=== PATIENT | male | born 1960 | race Caucasian/White ===

== ENCOUNTER 2019-09-03 15:19 | Outpatient (REF) | payer SELFPAY ==
[2019-09-03 17:49] LABS: Chol HDL Ratio 6.13 mg/dL (1.0-5.00); Cholesterol 245 mg/dL (0-200); Glucose 379 mg/dL (65-115); HDL Cholesterol 40 mg/dL (60-100); LDL Cholesterol Calculated 163 mg/dL (50-129); LDL HDL Ratio 4.08 RATIO (0.00-3.22); Triglycerides 209 mg/dL (0-150)
[2019-09-03 18:16] LABS: Estmated Average Glucose 306; Hemoglobin A1C 12.3 % (4.0-6.0)
== END 2019-09-03 15:20 | disposition home or self-care (01) ==
LOC: LAB 15:19
PROVIDERS: Family Provider Nurse Practitioner Family; PCP Nurse Practitioner Family; Visit Provider Dermatology
DX: Z13.9 Encounter for screening, unspecified (principal)
CPT/HCPCS: 80061; 82947; 83036

== ENCOUNTER → 2020-12-26 15:58 | Outpatient (BNVA) | payer MEDICAID, SELFPAY | PROVIDERS: Family Provider Nurse Practitioner Family; PCP Registered Nurse; Visit Provider Registered Nurse | DX: E11.40 Type 2 diabetes mellitus with diabetic neuropathy, unspecified; E78.5 Hyperlipidemia, unspecified; I10 Essential (primary) hypertension; F17.210 Nicotine dependence, cigarettes, uncomplicated; E11.65 Type 2 diabetes mellitus with hyperglycemia | CPT/HCPCS: 80053; 80061; 83036; 85025 ==

== ENCOUNTER 2021-03-03 06:23 | Outpatient (CLI) | payer MEDICAID, SELFPAY ==
[2021-03-03 06:37] VITALS: BMI 21.4
--- NOTE | 2021-03-03 06:37 | ECG_ITS ---
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 Interpretive Statements NAME OF STUDY: TREADMILL STRESS TEST INDICATION: King, PROCEDURE: At the baseline, the patient's blood pressure was 103/80 with a heart rate of 101. The baseline electrocardiogram showed normal sinus rhythm with normal ST-Ts.. The patient exercised for 6 minutes and 31 seconds on a standard Luis A protocol. Patient attained a maximum heart rate of 137 beats per minute(86% of the maximum predicted heart rate) with a blood pressure at the peak exercise of 147/72 mm Hg. The EKG at the peak exercise revealed no significant changes. Patient did not have any chest pain or any significant cardiac arrhythmias with the exercise During the recovery phase, there were no new changes. Blood pressure at the end of the recovery phase was 124/82 mm Hg with a heart rate of 94 per minute. CONCLUSION: 1. No significant EKG changes of the treadmill exercise. 2. No exercise-induced chest pain or cardiac arrhythmia 3. Fair exercise tolerance, attained a maximum of 10.2 METs Electronically Signed On 03-06-2021 17:51:59 CDT by Mark Mcclure M.D. [id number]
[2021-03-03 07:05] VITALS: BP 124/82; PULSE 94
== END 2021-03-03 06:24 | disposition home or self-care (01) ==
LOC: CDL 06:30
PROVIDERS: PCP Registered Nurse; Visit Provider Registered Nurse
DX: R06.09 Other forms of dyspnea (principal)
CPT/HCPCS: 93017

== ENCOUNTER → 2021-03-23 09:33 | Outpatient (BNVA) | payer MEDICAID, SELFPAY | PROVIDERS: PCP Registered Nurse; Visit Provider Registered Nurse | DX: E11.65 Type 2 diabetes mellitus with hyperglycemia (principal); E11.40 Type 2 diabetes mellitus with diabetic neuropathy, unspecified | CPT/HCPCS: 80053; 83036 ==

== ENCOUNTER → 2021-06-22 09:53 | Outpatient (BNVA) | payer MEDICAID, SELFPAY | PROVIDERS: PCP Registered Nurse; Visit Provider Registered Nurse | DX: E11.40 Type 2 diabetes mellitus with diabetic neuropathy, unspecified (principal); E11.65 Type 2 diabetes mellitus with hyperglycemia | CPT/HCPCS: 80053; 80061; 83036; 85025 ==

== ENCOUNTER → 2021-11-07 11:32 | Outpatient (BNVA) | payer MEDICAID, SELFPAY | PROVIDERS: PCP Registered Nurse; Visit Provider Registered Nurse | DX: E11.65 Type 2 diabetes mellitus with hyperglycemia (principal); I10 Essential (primary) hypertension; E78.5 Hyperlipidemia, unspecified; R10.9 Unspecified abdominal pain; R19.00 Intra-abdominal and pelvic swelling, mass and lump, unspecified site; K31.89 Other diseases of stomach and duodenum; Z12.11 Encounter for screening for malignant neoplasm of colon; N40.1 Benign prostatic hyperplasia with lower urinary tract symptoms; R39.14 Feeling of incomplete bladder emptying; E27.8 Other specified disorders of adrenal gland; G47.00 Insomnia, unspecified; R46.89 Other symptoms and signs involving appearance and behavior; E11.40 Type 2 diabetes mellitus with diabetic neuropathy, unspecified; Z87.891 Personal history of nicotine dependence | CPT/HCPCS: 80053; 80061; 81000; 83036; 85025; G0103 ==

== ENCOUNTER → 2021-11-13 10:08 | Outpatient (BNVA) | payer MEDICAID, SELFPAY | PROVIDERS: PCP Registered Nurse; Referring Provider Registered Nurse; Visit Provider Surgery | DX: R93.3 Abnormal findings on diagnostic imaging of other parts of digestive tract (principal); Z12.11 Encounter for screening for malignant neoplasm of colon | CPT/HCPCS: 99203 ==

== ENCOUNTER 2022-01-17 05:21 | Day surgery (SDC) | payer MEDICAID, SELFPAY ==
[2022-01-12 11:32] VITALS: BMI 18.6
[2022-01-17 06:08] VITALS: BP 119/84; PULSE 83; RESP 18; TEMP 36.1; O2SAT 99
[2022-01-17] MEDS: sodium chloride 0.9% 1,000 ML 30 ML IV (06:20)
--- NOTE | 2022-01-17 06:36 | W.PM.OPSFHP ---
Same Day Surgery H&P Indication for Procedure/HPI DATE OF PROCEDURE: January 17, 2022 CHIEF COMPLAINT/INDICATIONFOR SURGICAL PROCEDURE: Esophagus problems PREOP DIAGNOSIS: Abnormal CT findings of the esophagus and screening colonoscopy PLANNED PROCEDURE: Operation Date: 01/17/22 07:00 Proposed Procedures p EGD and colonoscopy 40601,57804,R93.3,Z12.11(Not Applicable) - Akira Cotto MD s Colonoscopy(Not Applicable) - Akira oCtto MD 11/13/2021 This is a pleasant 61 years old gentleman referred to my practice with history of abnormal findings on the CT scan of the esophagus, the scan was done elsewhere and the report shows gastroesophageal thickness.? Patient reports history of nausea and vomiting in the morning particularly and he does have history of acid reflux.? Denies bleeding per rectum or history of colon cancer and he never had a colonoscopy before. 01/11/2022 Patient comes today for diagnostic EGD and screening colonoscopy CT scan of the abdomen pelvis was done at outside facility shows abnormal thickening of the medial gastric fundal wall/gastroesophageal junction. Patient did not have adequate colon prep.? History so we will reschedule him for coming week.? To have an adequate colon prep and we will plan to perform both EGD and colonoscopy at the same time.? Based on medical necessity. 01/17/2022 Patient comes today for EGD and colonoscopy as he did not have a good prep last week ROS All systems have been reviewed negative except as for the above or per problem list. Medications/Allergies* Home Medications Medication Instructions Recorded Confirmed Type gabapentin 100 mg capsule 100 mg PO TID 01/09/22 01/12/22 History metformin 500 mg tablet 500 mg PO BID 01/09/22 01/12/22 History trazodone 50 mg tablet 50 mg PO DAILY 01/09/22 01/12/22 History Allergies/Adverse Reactions Allergy/AdvReac Type Severity Reaction Status Date / Time No Known Allergies Allergy Verified 01/17/22 06:37 Current Medications: Generic Name Dose Route Start Last Admin Trade Name Freq PRN Reason Stop Dose Admin Sodium Chloride 1,000 mls @ 30 mls/hr 01/17/22 06:00 01/17/22 06:20 Sodium Chloride 0.9% IV 30 mls/hr .Q24H LINCOLN Administration Pertinent History/Comorbid Conditions* Medical History (Updated 11/15/21 @ 16:21 by Akira Cotto MD) Diabetes mellitus Family History (Updated 12/26/20 @ 14:17 by Luna Zuniga LPN) Diabetes Heart disease Cancer Social History Smoking and tobacco status: former smoker Quit status (tobacco): has quit using tobacco Former quit date comment: 12/09/2020 Alcohol intake: never Adopted: No Caregiver/support person: No Lives independently: Yes service: No Current occupational status: unemployed History of recent travel: No Sexually active: Yes Current gender identity: Male Pertinent Exam Findings alert, oriented x 3, regular rate & rhythm and procedure specific exam findings (Abdominal examination nontender nondistended soft) Recommendations Surgery/Procedure today (EGD and colonoscopy with possible biopsy) Coding Level of Care Code Acute Career Development Engineer for Srinivas Velasquez
[2022-01-17 07:30] VITALS: BP 94/47; PULSE 76; RESP 18; TEMP 36.1; O2SAT 97
[2022-01-17 07:42] VITALS: BP 104/64; PULSE 79; RESP 18; O2SAT 99
--- NOTE | 2022-01-17 09:12 | P.ANESASSM_ITS ---
Pre-Anesthetic Assessment Height/Weight: Height 1.75 m Weight 57.153 kg Temp Pulse Resp BP Pulse Ox 97.0 F L 79 18 104/64 99 01/17/22 07:30 01/17/22 07:42 01/17/22 07:42 01/17/22 07:42 01/17/22 07:42 Preop Diagnosis: Abnormal CT findings of the esophagus and screening colonoscopy Operation Date: 01/17/22 07:00 Proposed Procedures p EGD and colonoscopy [id number],R93.3,Z12.11(Not Applicable) - Akira Cotto MD s Colonoscopy(Not Applicable) - Akira Cotto MD Familial anesthetic complications: None Was Beta Perry taken within 24 hours: N/A Was Clonidine taken within 24 hours: N/A Last intake: Intake Last Liquid Date 01/16/22 Last Liquid Time 20:00 Last Solid Date 01/15/22 Last Solid Time 18:00 Social No alcohol and No tobacco (h/o smoking) Exam alert, oriented x 3 and regular rate & rhythm Airway Submandibular: within normal limits Cervical ROM: within normal limits Mallampati: Class II Dentition: false Pulmonary Chronic Obstructive Pulmonary Disease and Exertional Dyspnea GI Gastroesophageal Reflux Disease Neuropsych Neuropathy Anesthetic Plan ASA status: 3 Anesthesia: MAC Medications/Allergies Home Medications Medication Instructions Recorded Confirmed Last Taken Type sitagliptin 25 mg tablet (Januvia) 25 mg PO DAILY 30 Days #30 tab 11/07/21 01/12/22 01/16/22 Rx gabapentin 100 mg capsule 100 mg PO TID 01/09/22 01/12/22 01/16/22 History metformin 500 mg tablet 500 mg PO BID 01/09/22 01/12/22 01/16/22 History trazodone 50 mg tablet 50 mg PO DAILY 01/09/22 01/12/22 01/16/22 History pantoprazole 40 mg tablet,delayed 40 mg PO DAILY 30 Days #30 tab 01/17/22 Unknown Rx release (Protonix) Allergies Allergy/AdvReac Type Severity Reaction Status Date / Time No Known Allergies Allergy Verified 01/17/22 06:37 [facility] Anesthesia Medical History Diabetes mellitus Family History Other Cancer Diabetes Heart disease Social History Smoking and tobacco status: former smoker Quit status (tobacco): has quit using tobacco Former quit date comment: 12/09/2020 Alcohol intake: never Adopted: No Caregiver/support person: No Lives independently: Yes service: No Current occupational status: unemployed History of recent travel: No Sexually active: Yes Current gender identity: Male Data Anesthesia Cardiac Studies: No Data to Display
--- NOTE | 2022-01-17 09:17 | ANE.PACU2 ---
Inpatient post-anesthesia follow up: Airway intact: Yes Vital signs: Temperature 97.0 F Pulse Rate 79 Respiratory Rate 18 Blood Pressure 104/64 Pulse Oximetry 99 Oxygen Delivery Me thod Room Air Oxygen Flow Rate Fraction of Inspir ed Oxygen Hydration adequate: Yes Nausea and vomiting: No Pain level: 1 Mental status: Baseline
== END 2022-01-17 08:05 | disposition home or self-care (01) ==
PROVIDERS: PCP Registered Nurse; Visit Provider Surgery
PROC: 0DJ08ZZ Inspection of Upper Intestinal Tract, Via Natural or Artificial Opening Endoscopic (ICD-10-PCS; CPT 43235; principal; 2022-01-17 07:00)
PROC: 0DJD8ZZ Inspection of Lower Intestinal Tract, Via Natural or Artificial Opening Endoscopic (ICD-10-PCS; CPT 45378; 2022-01-17 07:00)
DX: Z12.11 Encounter for screening for malignant neoplasm of colon (principal); R93.3 Abnormal findings on diagnostic imaging of other parts of digestive tract; K21.00 Gastro-esophageal reflux disease with esophagitis, without bleeding; K44.9 Diaphragmatic hernia without obstruction or gangrene; K29.50 Unspecified chronic gastritis without bleeding; B96.81 Helicobacter pylori [H. pylori] as the cause of diseases classified elsewhere; J44.9 Chronic obstructive pulmonary disease, unspecified; E11.40 Type 2 diabetes mellitus with diabetic neuropathy, unspecified; Z79.84 Long term (current) use of oral hypoglycemic drugs; Z87.891 Personal history of nicotine dependence
CPT/HCPCS: 43239; 45378; 88305; 88342; J2370; J2704; J7030

== ENCOUNTER → 2022-02-05 10:00 | Outpatient (BNVA) | payer MEDICAID, SELFPAY | PROVIDERS: PCP Registered Nurse; Visit Provider Registered Nurse | DX: E11.9 Type 2 diabetes mellitus without complications (principal) | CPT/HCPCS: 80053; 81000; 82043; 83036; 85025 ==

== ENCOUNTER → 2022-02-14 10:21 | Outpatient (BNVA) | payer MEDICAID, SELFPAY | PROVIDERS: PCP Registered Nurse; Visit Provider Surgery | DX: K20.90 Esophagitis, unspecified without bleeding (principal); Z12.11 Encounter for screening for malignant neoplasm of colon | CPT/HCPCS: 99213 ==

== ENCOUNTER → 2022-05-14 10:15 | Outpatient (BNVA) | payer MEDICAID, SELFPAY | PROVIDERS: PCP Registered Nurse; Visit Provider Registered Nurse | DX: E11.65 Type 2 diabetes mellitus with hyperglycemia (principal); E11.9 Type 2 diabetes mellitus without complications; E11.40 Type 2 diabetes mellitus with diabetic neuropathy, unspecified; K29.70 Gastritis, unspecified, without bleeding; G47.00 Insomnia, unspecified | CPT/HCPCS: 80053; 83036 ==

== ENCOUNTER → 2022-08-14 10:05 | Outpatient (BNVA) | payer MEDICAID, SELFPAY | PROVIDERS: PCP Registered Nurse; Visit Provider Registered Nurse | DX: E11.65 Type 2 diabetes mellitus with hyperglycemia (principal) | CPT/HCPCS: 80053; 83036 ==

== ENCOUNTER → 2022-11-20 10:19 | Outpatient (BNVA) | payer MEDICAID, SELFPAY | PROVIDERS: PCP Registered Nurse; Visit Provider Registered Nurse | DX: E11.65 Type 2 diabetes mellitus with hyperglycemia (principal); E11.40 Type 2 diabetes mellitus with diabetic neuropathy, unspecified; F17.210 Nicotine dependence, cigarettes, uncomplicated; R46.89 Other symptoms and signs involving appearance and behavior; K29.70 Gastritis, unspecified, without bleeding | CPT/HCPCS: 80053; 80061; 83036 ==

== ENCOUNTER → 2023-02-14 10:14 | Outpatient (BNVA) | payer MEDICAID, SELFPAY | PROVIDERS: PCP Registered Nurse; Visit Provider Registered Nurse | DX: E11.9 Type 2 diabetes mellitus without complications (principal) | CPT/HCPCS: 80053; 82043; 83036 ==

== ENCOUNTER → 2023-05-14 09:29 | Outpatient (BNVA) | payer MEDICAID, SELFPAY | PROVIDERS: PCP Registered Nurse; Visit Provider Registered Nurse | DX: E11.9 Type 2 diabetes mellitus without complications (principal) | CPT/HCPCS: 83036; 88304 ==

== ENCOUNTER → 2023-08-27 08:48 | Outpatient (BNVA) | payer MEDICAID, SELFPAY | PROVIDERS: PCP Registered Nurse; Visit Provider Registered Nurse | DX: E11.65 Type 2 diabetes mellitus with hyperglycemia (principal) | CPT/HCPCS: 80053; 80061; 83036; 85025 ==

== ENCOUNTER 2023-09-26 09:57 | Outpatient (CLI) | payer MEDICAID, SELFPAY ==
--- NOTE | 2023-09-26 10:15 | CT_ITS ---
WS: [id number] LDCT LUNG CANCER SCREENING TECHNIQUE: Noncontrast CT of the chest with coronal and sagittal reformatted images. CLINICAL INFORMATION: Z12.2 - Encounter for screening for malignant neoplasm of... COMPARISON: None. DLP: 54.59 mGy.cm DIvol: Mean CTDIvol: 0.90 (mGy) All CT scans at [facility] use at least one of these dose optimization techniques: automat ed exposure control; mA and/or kV adjustment per patient size (includes targeted exams where dose is matched to clinical indication); or iterative reconstruction. FINDINGS: Calcified granuloma LEFT upper lobe anteriorly. No suspicious pulmonary parenchymal abnorma lities. Normal caliber thoracic aorta. No mediastinal or hilar lymphadenopathy. Coronary calcification. No ax illary lymphadenopathy. LEFT adrenal gland is normal. RIGHT adrenal adenoma measuring 1.4 cm. Mild thoracic curve. Hypertroph ic changes thoracic spine. IMPRESSION: CT/CT lung screening [id number] LUNG-RADS: 2-Benign Appearance or Behavior FOLLOW UP: 12 Month: Continue annual screening with LDCT
== END 2023-09-26 09:58 | disposition home or self-care (01) ==
LOC: RAD 09:57
PROVIDERS: PCP Registered Nurse; Visit Provider Registered Nurse
DX: Z12.2 Encounter for screening for malignant neoplasm of respiratory organs (principal); Z87.891 Personal history of nicotine dependence; J84.10 Pulmonary fibrosis, unspecified
CPT/HCPCS: 71271

== ENCOUNTER → 2023-10-08 13:36 | Outpatient (BNVA) | payer MEDICAID, SELFPAY | PROVIDERS: PCP Registered Nurse; Visit Provider Registered Nurse | DX: E11.65 Type 2 diabetes mellitus with hyperglycemia (principal) | CPT/HCPCS: 82962 ==

== ENCOUNTER 2023-11-06 14:08 | Inpatient (IN) | payer MEDICAID, SELFPAY ==
[2023-11-06] VITALS (45 sets, daily range): BP systolic 63–117; BP diastolic 45–71; PULSE 0–148; RESP 12–29; TEMP 36.2–36.4; O2SAT 91–100
--- NOTE | 2023-11-06 14:12 | XR_ITS ---
WS: [id number] XR chest 1V portable [id number] REASON FOR EXAM: ams FINDINGS: No examination for comparison. Mild tortuosity of the thoracic aorta. Normal heart size. Calcified granulomas disease in both hemithoraces. No acute pulmonary parenchymal or pleural abnormality. Moderate degenerative spondylosis in the mid and lower thoracic spine with mild scoliosis. Multiple old healed rib fractures on the left. XR/XR chest 1V portable [id number] IMPRESSION: No acute chest abnormality.
--- NOTE | 2023-11-06 14:13 | ECG_ITS ---
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 Measurements Intervals [place] Rate: 89 P: 65 GA: 149 QRS: -29 QRSD: 83 T: 61 QT: 397 QTc: 485 Interpretive Statements SINUS RHYTHM POSSIBLE LEFT ATRIAL ENLARGEMENT [-0.1mV P-WAVE IN V1/V2] SEPTAL MYOCARDIAL INFARCTION , PROBABLY OLD [40+ ms Q WAVE IN V1/V2] No previous ECG available for comparison Electronically Signed On 11-06-2023 16:48:05 CDT by Thanh Bell M.D. [email or web address] lady of [id number]
[2023-11-06 14:31] LABS: Arterial Blood Gas Hematocrit 38.1 % (42-52); Blood Gas Allen Test Pos; Blood Gas Operator Identificat CAK; Blood Gas Sample Site Radial, left; Blood Gas Sample Type Arterial; HCO3 ABG 2.7 mmol/L (22-26); HGB O2 Sat 97.9 % (95-100); Ionized Calcium Level - ABG 1.3 mmol/L (1.1-1.4); Methemoglobin 0.6 % (0.4-1.5); Oxygen Device ROOM AIR; Oxygen Saturation ABG 99.4; PO2 FiO2 Ratio Arterial Blood 0; Potassium Level - ABG 4.1 mmol/L (3.5-5.0); Total Hemoglobin 12.4 g/dL (14-18)
[2023-11-06 14:32] LABS: ABG PCO2 11.6 mmHg (35-45); ABG PH Result 6.98 (7.35-7.45)
--- NOTE | 2023-11-06 14:34 | PC.PHAR ---
pt ams and unable to verify medications-called pts only contact [facility] [phone] no answer-medications entered are from what ext med history shows has been filled recently
[2023-11-06 14:40] LABS: Basophils % 0.3 %; Hematocrit 41.4 % (37-53); Lymphocytes # 0.7 10^3/uL (0.8-4.8); Lymphocytes % 5.9 %; Mean Corpuscular HGB Conc 31.2 g/dL (30-55); Mean Platelet Volume 10.7 fL (7.4-10.4); Monocytes # 1.1 10^3/uL (0.2-0.9); Neutrophils # 9.83 10^3/uL (1.8-7.7); Neutrophils % 84.4 %; Nucleated Red Blood Cells % 0 %; Platelet Count 168 10^3/cmm (157-399); Red Cell Distribution Width 13.6 % (12.1-15.1); White Blood Count 11.66 10^3/uL (3.29-11.43)
--- NOTE | 2023-11-06 14:40 | ED_ITS ---
Documented by User: Onofre Corbin DO 11/06/23 15:35 HPI - Altered Mental Status 2 General: Chief Complaint: Altered Mental Status Stated Complaint: AMS Time Seen by Provider: 11/06/23 14:09 History of Present Illness: Patient brought in by EMS for altered mental status. EMS states neighbor went to check on patient due to noticing his front door was open all night long. Neighbor called EMS due to patient's altered mental status. Patient is diabetic. Patient is alert to name and place however does not know the time or date or nor his address. Patient is in diabetic on glipizide and Trulicity and Jardiance, Review of Systems 2 General: Reports: ROS unobtainable due to mental status PFSH ED 2 PFSH: Medical History Gastritis Hiatal hernia Diabetes mellitus Family History Other Cancer Diabetes Heart disease Social History Smoking and tobacco/nicotine status: current every day tobacco/nicotine user Alcohol intake: current Alcohol intake frequency: 0-2 Drinks per Day Alcohol type: beer Substance/Drug Use: never Adopted: No Caregiver/support person: No Lives independently: Yes service: No Current occupational status: unemployed Sexually active: Yes Do you think of yourself as: Straight/Heterosexual Current gender identity: Male Physical Exam 2 Narrative: Unkempt with urine smelland feces on body Const: COMMON NORMALS: no acute distress, average body habitus, alert and well nourished HENMT: COMMON NORMALS: normocephalic, atraumatic, hearing grossly normal bilaterally, external ears normal, Normal external nose present, moist oral mucous membranes and oropharynx normal HEAD & SCALP: normocephalic and atraumatic NOSE: Normal external nose present EXTERNAL EAR: Yes external ears normal Eye: COMMON NORMALS: Equal, round and reactive pupils present, EOMs intact bilaterally, conjunctivae normal and no scleral icterus CONJUNCTIVA: Yes conjunctivae normal PUPIL: Yes Equal, round and reactive pupils present Neck/C-Spine: COMMON NORMALS: full ROM, no lymphadenopathy, supple, no meningeal signs, no JVD and Thyroid normal THYROID: Thyroid normal Chest: COMMONS NORMALS: normal inspection of the chest and normal palpation of entire chest wall Resp: COMMON NORMALS: normal respiratory effort, No retractions, No use of accessory muscles and clear to auscultation bilaterally AUSCULTATION: clear to auscultation bilaterally Cardio: COMMON NORMALS: no JVD, regular rate, regular rhythm, S1 normal heart sound present, S2 normal heart sound present, No gallops present (Cardio), No clicks present (Cardio), No murmurs present (Cardio) and No rub (Cardio) R ATE: regular rate RHYTHM: regular rhythm HEART SOUNDS: S1 normal heart sound present and S2 normal heart sound present GI: COMMON NORMALS: Normal to inspection, nondistended, normoactive bowel sounds present, Soft to palpation, non-tender, No hepatosplenomegaly present and no masses PALPATION: Yes Soft to palpation and Yes No hepatosplenomegaly present Neuro: SENSORIUM/ORIENTATION: Yes alert MENINGEAL SIGNS: Yes no meningeal signs Course 2 Vital Signs: Vital signs: Vital Signs Temperature 97.6 F 11/06/23 14:09 Pulse Rate 130 H 11/06/23 17:14 Respiratory Rate 18 11/06/23 17:14 Blood Pressure 86/58 11/06/23 17:14 Pulse Oximetry 96 11/06/23 15:30 Oxygen Delivery Me thod Room Air 11/06/23 17:14 MDM - Altered Mental Status Medical Decision Making Patient presents with elevated blood glucose of 490, an ABG was obtained which shows severe acidosis, lab work showed elevated BUN/creatinine of 68 and 2.1 blood sugar of 490, anion gap of 40, positive serum ketones, negative lactic acid, procalcitonin, sodium 141, potassium of 4.4, chest x-ray was negative, EKG was unremarkable, UA and UDS are pending. Dr. Jerez was consulted who agreed to place patient in ICU. Patient was started on a bicarb drip, insulin drip, given 10 units of IV insulin, bolused 2 L normal saline fluid, Differential Diagnosis Likely altered mental status; Unlikely alcoholic intoxication, delirium, dementia, hypoglycemia, hyponatremia, subarachnoid hemorrhage or sepsis Medical Records I reviewed the patient's medical records. Lab Data I reviewed the patient's lab results. 11/06/23 14:33 11/06/23 16:12 Radiology Impressions Chest X-Ray 11/06/23 14:12 IMPRESSION: No acute chest abnormality. Laboratory Results WBC 11.66 10^3/uL (3.29-11.43) H 11/06/23 14:33 RBC 4.60 10^6/uL (3.85-5.65) 11/06/23 14:33 Hgb 12.90 g/dL (11.27-16.99) 11/06/23 14:33 Hct 41.4 % (37-53) 11/06/23 14:33 MCV 90.0 fl (82-101) 11/06/23 14:33 MCH 28.0 pg (27-33) 11/06/23 14:33 MCHC 31.2 g/dL (30-55) 11/06/23 14:33 RDW 13.6 % (12.1-15.1) 11/06/23 14:33 Plt Count 168 10^3/cmm (157-399) 11/06/23 14:33 MPV 10.7 fL (7.4-10.4) H 11/06/23 14:33 Neut % (Auto) 84.4 % 11/06/23 14:33 Lymph % (Auto) 5.9 % 11/06/23 14:33 Valencia % (Auto) 9.0 % 11/06/23 14:33 Eos % (Auto) 0.0 % 11/06/23 14:33 Baso % (Auto) 0.3 % 11/06/23 14:33 Neut # (Auto) 9.83 10^3/uL (1.8-7.7) H 11/06/23 14:33 Lymph # (Auto) 0.7 10^3/uL (0.8-4.8) L 11/06/23 14:33 Valencia # (Auto) 1.1 10^3/uL (0.2-0.9) H 11/06/23 14:33 Eos # (Auto) 0.0 10^3/uL (0.0-0.8) 11/06/23 14:33 Baso # (Auto) 0.0 10^3/uL (0.0-0.1) 11/06/23 14:33 Nucleated RBC % (auto) 0 % 11/06/23 14:33 Nucleated RBCs # 0.0 /100WBC 11/06/23 14:33 Specimen Type Arterial 11/06/23 14:20 Sample Site Radial, left 11/06/23 14:20 ABG pH 6.98 (7.35-7.45) L* 11/06/23 14:20 ABG pCO2 11.6 mmHg (35-45) L* 11/06/23 14:20 ABG pO2 152.0 mmHg (80.0-100.0) H 11/06/23 14:20 ABG PO2/FiO2 Ratio 0 11/06/23 14:20 ABG HCO3 2.7 mmol/L (22-26) L 11/06/23 14:20 ABG O2 Saturation 99.4 11/06/23 14:20 ABG Base Excess -27.0 mmol/L (-2.0-2.0) L 11/06/23 14:20 Ruddy Test Pos 11/06/23 14:20 A-a O2 Gradient Not Reportable 11/06/23 14:20 Hematocrit 38.1 % (42-52) L 11/06/23 14:20 Hgb O2 Saturation 97.9 % (95-100) 11/06/23 14:20 Carboxyhemoglobin 1.0 %THgb (0.4-20.1) 11/06/23 14:20 Methemoglobin 0.6 % (0.4-1.5) 11/06/23 14:20 Total Hemoglobin 12.4 g/dL (14-18) L 11/06/23 14:20 Sodium 142.0 mmol/L (131-143) 11/06/23 14:20 Potassium 4.1 mmol/L (3.5-5.0) 11/06/23 14:20 Glucose 452.0 mg/dL (70-115) H 11/06/23 14:20 Ionized Calcium 1.3 mmol/L (1.1-1.4) 11/06/23 14:20 O2 Delivery Device Room air 11/06/23 14:20 FiO2 21.0 % 11/06/23 14:20 Product Marketing Analyst ID Cak 11/06/23 14:20 Sodium 145 mmol/L (136-145) 11/06/23 16:12 Potassium 3.3 mmol/L (3.5-5.1) L 11/06/23 16:12 Chloride 106 mmol/L (98-107) 11/06/23 16:12 Carbon Dioxide 6 mmol/L (22-29) L* 11/06/23 16:12 Anion Gap 36.3 (5-19) H 11/06/23 16:12 BUN 70 mg/dL (8-23) H 11/06/23 16:12 Creatinine 2.2 mg/dL (0.7-1.2) H 11/06/23 16:12 GFR Calculation 30.5 mL/min (90-130) L 11/06/23 16:12 Glucose 409 mg/dL (65-115) H 11/06/23 16:12 Calculated Osmolality 338 mOsm/kg (285-295) H 11/06/23 16:12 Lactic Acid 0.8 mmol/L (0.5-2.2) 11/06/23 14:33 Calcium 8.5 mg/dL (8.5-10.5) 11/06/23 16:12 Magnesium 2.8 mg/dL (1.7-2.3) H 11/06/23 14:33 Total Bilirubin 0.2 mg/dL (0.15-1.2) 11/06/23 14:33 AST 9 U/L (0-40) 11/06/23 14:33 ALT 14 U/L (0-41) 11/06/23 14:33 Alkaline Phosphatase 94 U/L (40-130) 11/06/23 14:33 Troponin T Baseline 45 ng/L (0-15) H 11/06/23 14:33 Troponin T 120 Minute 49.82 ng/L (0-15) H 11/06/23 16:12 Delta Troponin T 4.82 ABS# (0-10) 11/06/23 16:12 C-Reactive Protein 67.1 mg/L (0.0-4.9) H 11/06/23 14:33 Total Protein 5.6 g/dL (6.6-8.7) L 11/06/23 14:33 Albumin 3.4 g/dL (3.5-5.2) L 11/06/23 14:33 Globulin 2.2 g/dL (1.3-4.6) 11/06/23 14:33 Procalcitonin 0.42 ng/mL (0-0.5) 11/06/23 14:33 Serum Ketones Positive (Negative) H 11/06/23 14:33 All radiology interpretation(s) finalized by discharge Discharge Plan Discharge Patient Disposition: Admitted As Inpatient Admit Provider: Gautam Russell Clinical Impression: DKA (diabetic ketoacidosis), Altered mental status Condition: Stable Coding Level of Care Code ED Store Clerk Checker for Chg Fwd Documented by User: Rebeca Mosquera MD 11/06/23 17:32 HPI - Altered Mental Status 2 General: Chief Complaint: Altered Mental Status Stated Complaint: AMS Time Seen by Provider: 11/06/23 14:09 PFSH ED 2 PFSH: Medical History Gastritis Hiatal hernia Diabetes mellitus Family History Other Cancer Diabetes Heart disease Social History Smoking and tobacco/nicotine status: current every day tobacco/nicotine user Alcohol intake: current Alcohol intake frequency: 0-2 Drinks per Day Alcohol type: beer Substance/Drug Use: never Adopted: No Caregiver/support person: No Lives independently: Yes service: No Current occupational status: unemployed Sexually active: Yes Do you think of yourself as: Straight/Heterosexual Current gender identity: Male Procedures Central Line Placement Right IJ: Time Out Performed: Yes Patient Placed on Monitor/Pulse Ox: Yes MD Prep: mask, gown and gloves Central Line Prep: Chlorhexidine scrub Local Anesthetic: lidocaine 1% Amount of anesthesia used (mL): 3 Ultrasound Used for Placement: Yes Central Line Lumen Inserted: triple Post Procedure: sutured in place, good blood return, all ports aspirated, flushed, capped and sterile dressing applied Post Procedure X-Ray: tip of catheter in good position and no pneumothorax seen Patient Tolerated Procedure: well and no complications Complications: none Procedural Sedation Indication: other (central line) ASA Class: II Time of Last PO Intake: 12:00 Preparation: engine monitor applied and pulse oximeter Ketamine: IM Ketamine dose (mg): 350 Course 2 Vital Signs: Vital signs: Vital Signs Temperature 97.6 F 11/06/23 14:09 Pulse Rate 130 H 11/06/23 17:14 Respiratory Rate 18 11/06/23 17:14 Blood Pressure 86/58 11/06/23 17:14 Pulse Oximetry 96 11/06/23 15:30 Oxygen Delivery Me thod Room Air 11/06/23 17:14 MDM - Altered Mental Status Lab Data 11/06/23 14:33 11/06/23 16:12 Radiology Impressions Chest X-Ray 11/06/23 14:12 IMPRESSION: No acute chest abnormality. Laboratory Results WBC 11.66 10^3/uL (3.29-11.43) H 11/06/23 14:33 RBC 4.60 10^6/uL (3.85-5.65) 11/06/23 14:33 Hgb 12.90 g/dL (11.27-16.99) 11/06/23 14:33 Hct 41.4 % (37-53) 11/06/23 14:33 MCV 90.0 fl (82-101) 11/06/23 14:33 MCH 28.0 pg (27-33) 11/06/23 14:33 MCHC 31.2 g/dL (30-55) 11/06/23 14:33 RDW 13.6 % (12.1-15.1) 11/06/23 14:33 Plt Count 168 10^3/cmm (157-399) 11/06/23 14:33 MPV 10.7 fL (7.4-10.4) H 11/06/23 14:33 Neut % (Auto) 84.4 % 11/06/23 14:33 Lymph % (Auto) 5.9 % 11/06/23 14:33 [place] % (Auto) 9.0 % 11/06/23 14:33 Eos % (Auto) 0.0 % 11/06/23 14:33 Baso % (Auto) 0.3 % 11/06/23 14:33 Neut # (Auto) 9.83 10^3/uL (1.8-7.7) H 11/06/23 14:33 Lymph # (Auto) 0.7 10^3/uL (0.8-4.8) L 11/06/23 14:33 [place] # (Auto) 1.1 10^3/uL (0.2-0.9) H 11/06/23 14:33 Eos # (Auto) 0.0 10^3/uL (0.0-0.8) 11/06/23 14:33 Baso # (Auto) 0.0 10^3/uL (0.0-0.1) 11/06/23 14:33 Nucleated RBC % (auto) 0 % 11/06/23 14: Nucleated RBCs # 0.0 /100WBC 11/06/23 14:33 Specimen Type Arterial 11/06/23 14:20 Sample Site Radial, left 11/06/23 14:20 ABG pH 6.98 (7.35-7.45) L* 11/06/23 14:20 ABG pCO2 11.6 mmHg (35-45) L* 11/06/23 14:20 ABG pO2 152.0 mmHg (80.0-100.0) H 11/06/23 14:20 ABG PO2/FiO2 Ratio 0 11/06/23 14:20 ABG HCO3 2.7 mmol/L (22-26) L 11/06/23 14:20 ABG O2 Saturation 99.4 11/06/23 14:20 ABG Base Excess -27.0 mmol/L (-2.0-2.0) L 11/06/23 14:20 Ruddy Test Pos 11/06/23 14:20 A-a O2 Gradient Not Reportable 11/06/23 14:20 Hematocrit 38.1 % (42-52) L 11/06/23 14:20 Hgb O2 Saturation 97.9 % (95-100) 11/06/23 14:20 Carboxyhemoglobin 1.0 %THgb (0.4-20.1) 11/06/23 14:20 Methemoglobin 0.6 % (0.4-1.5) 11/06/23 14:20 Total Hemoglobin 12.4 g/dL (14-18) L 11/06/23 14:20 Sodium 142.0 mmol/L (131-143) 11/06/23 14:20 Potassium 4.1 mmol/L (3.5-5.0) 11/06/23 14:20 Glucose 452.0 mg/dL (70-115) H 11/06/23 14:20 Ionized Calcium 1.3 mmol/L (1.1-1.4) 11/06/23 14:20 O2 Delivery Device Room air 11/06/23 14:20 FiO2 21.0 % 11/06/23 14:20 Product Marketing Analyst ID Cak 11/06/23 14:20 Sodium 145 mmol/L (136-145) 11/06/23 16:12 Potassium 3.3 mmol/L (3.5-5.1) L 11/06/23 16:12 Chloride 106 mmol/L (98-107) 11/06/23 16:12 Carbon Dioxide 6 mmol/L (22-29) L* 11/06/23 16:12 Anion Gap 36.3 (5-19) H 11/06/23 16:12 BUN 70 mg/dL (8-23) H 11/06/23 16:12 Creatinine 2.2 mg/dL (0.7-1.2) H 11/06/23 16:12 GFR Calculation 30.5 mL/min (90-130) L 11/06/23 16:12 Glucose 409 mg/dL (65-115) H 11/06/23 16:12 Calculated Osmolality 338 mOsm/kg (285-295) H 11/06/23 16:12 Lactic Acid 0.8 mmol/L (0.5-2.2) 11/06/23 14:33 Calcium 8.5 mg/dL (8.5-10.5) 11/06/23 16:12 Magnesium 2.8 mg/dL (1.7-2.3) H 11/06/23 14:33 Total Bilirubin 0.2 mg/dL (0.15-1.2) 11/06/23 14:33 AST 9 U/L (0-40) 11/06/23 14:33 ALT 14 U/L (0-41) 11/06/23 14:33 Alkaline Phosphatase 94 U/L (40-130) 11/06/23 14:33 Troponin T Baseline 45 ng/L (0-15) H 11/06/23 14:33 Troponin T 120 Minute 49.82 ng/L (0-15) H 11/06/23 16:12 Delta Troponin T 4.82 ABS# (0-10) 11/06/23 16:12 C-Reactive Protein 67.1 mg/L (0.0-4.9) H 11/06/23 14:33 Total Protein 5.6 g/dL (6.6-8.7) L 11/06/23 14:33 Albumin 3.4 g/dL (3.5-5.2) L 11/06/23 14:33 Globulin 2.2 g/dL (1.3-4.6) 11/06/23 14:33 Procalcitonin 0.42 ng/mL (0-0.5) 11/06/23 14:33 Serum Ketones Positive (Negative) H 11/06/23 14:33 Critical Care Time 2 Critical Care Time: Critical Care Time: Yes Total Critical Care Time: 45 Attestation: The high probability of a clinically significant, sudden or life threatening deterioration of the patient's endo system(s) required my full and direct attention, intervention and personal management. The critical care time is as shown. This time is in addition to time spent performing any reported procedures but includes the following: [x] Data and vital sign review and interpretation [x] Patient assessment, examination and intervention [x] Documentation [x] Medication orders and management Discharge Plan Discharge Patient Disposition: Admitted As Inpatient Admit Provider: Gautam Russell Clinical Impression: DKA (diabetic ketoacidosis), Altered mental status Condition: Stable Coding Level of Care Code ED Store Clerk Checker for Srinivas Velasquez
[2023-11-06] MEDS: sodium chloride 0.9% 1,000 ML 999 ML IV ×3 (14:49→19:00)
[2023-11-06 14:57] LABS: Ketone (Acetest) Serum Positive (Negative)
[2023-11-06 14:58] LABS: Lactic Sepsis W/Reflex 0.8 mmol/L (0.5-2.2)
[2023-11-06 15:01] LABS: Troponin(5th) Baseline 45 ng/L (0-15)
[2023-11-06 15:09] LABS: Procalcitonin 0.42 ng/mL (0-0.5)
[2023-11-06] MEDS: sodium bicarbonate 150 MEQ in dextrose 5% 1,000 ML 100 MEQ IV ×3 (15:09→19:00)
[2023-11-06] MEDS: insulin regular-human 100 units/1 mL 10 UNIT IVP (15:12)
--- NOTE | 2023-11-06 15:19 | PC.NURSE ---
UNABLE TO SCAN MEDICATIONS IN ROOM DUE TO COMPUTER ISSUES.
[2023-11-06 15:20] LABS: Alanine Aminotransferase 14 U/L (0-41); Albumin Level 3.4 g/dL (3.5-5.2); Alkaline Phosphatase 94 U/L (40-130); Anion Gap 40.4 (5-19); Aspartate Amino Transferase 9 U/L (0-40); Blood Urea Nitrogen 68 mg/dL (8-23); C Reactive Protein 67.1 mg/L (0.0-4.9); Calcium 8.2 mg/dL (8.5-10.5); Chloride 101 mmol/L (98-107); Creatinine Clr Calc Pharmacy 29.2495; Globulin 2.2 g/dL (1.3-4.6); Glomerular Filtration Rate 32.2 mL/min (90-130); Glucose 490 mg/dL (65-115); Magnesium 2.8 mg/dL (1.7-2.3); Osmolality Calculated 334 mOsm/kg (285-295); Potassium 4.4 mmol/L (3.5-5.1); Sodium 141 mmol/L (136-145); Total Bilirubin 0.2 mg/dL (0.15-1.2); Total Protein 5.6 g/dL (6.6-8.7)
[2023-11-06 15:22] LABS: Carbon Dioxide 4 mmol/L (22-29)
--- NOTE | 2023-11-06 15:46 | PC.NURSE ---
UPON ENTERING ROOM, PT RIPPED OUT BOTH IVS. TICK WAS ALSO FOUND UNDER PT RIGHT UNDER ARM AND REMOVED. PHYSICIAN NOTIFIED.
--- NOTE | 2023-11-06 15:56 | PC.NURSE ---
UNABLE TO OBTAIN ROUTINE VITAL SIGNS DUE TO PT ALTERED MENTAL STATUS.
--- NOTE | 2023-11-06 16:13 | ECG_ITS ---
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 Measurements Intervals [place] Rate: 136 P: 0 AK: 0 QRS: -28 QRSD: 91 T: 85 QT: 340 QTc: 513 Interpretive Statements ATRIAL FIBRILLATION WITH RAPID VENTRICULAR RESPONSE BORDERLINE LEFT AXIS DEVIATION [QRS AXIS < -20] POSSIBLE RIGHT VENTRICULAR CONDUCTION DELAY [RSR (QR) IN V1/V2] NONSPECIFIC T-WAVE ABNORMALITY Compared to ECG 11/06/2023 14:17:28 T-wave abnormality now present Sinus rhythm no longer present Myocardial infarct finding no longer present Electronically Signed On 11-06-2023 16:52:48 CDT by Thanh Bell M.D. [id number]
--- NOTE | 2023-11-06 16:18 | PC.NURSE ---
MEDICATIONS DELAYED DUE TO PYXIS ERROR.
[2023-11-06] MEDS: haloperidol inj 5 mg/mL INJ 1 mL IM (16:32)
[2023-11-06 16:44] LABS: Troponin 5 2HR 49.82 ng/L (0-15); Troponin 5 2HR Delta 4.82 ABS# (0-10)
[2023-11-06 16:48] LABS: Anion Gap 36.3 (5-19); Blood Urea Nitrogen 70 mg/dL (8-23); Calcium 8.5 mg/dL (8.5-10.5); Chloride 106 mmol/L (98-107); Glomerular Filtration Rate 30.5 mL/min (90-130); Glucose 409 mg/dL (65-115); Osmolality Calculated 338 mOsm/kg (285-295); Potassium 3.3 mmol/L (3.5-5.1); Sodium 145 mmol/L (136-145)
[2023-11-06 16:54] LABS: Carbon Dioxide 6 mmol/L (22-29)
--- NOTE | 2023-11-06 17:09 | PM.HP ---
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 On arrival at home patient was found to be confused and somnolent. When seen in the ER with son and other family members at bedside patient was awake, confused, not following simple directions asking for water and soda with mean arterial pressure of 65 and systolic blood pressure of 86 mmHg. Patient has ripped his IV lines out. As per the son patient had presented similarly a week ago to [facility] ER where he was discharged after 8 hours. Patient has been dealing with stomach ulcers. Review of Systems General: Reports: ROS unobtainable due to mental status Medications/Allergies Home Medications Medication Instructions Recorded Confirmed Last Taken Type blood-glucose meter #1 ea 10/04/22 11/06/23 Unknown Rx lancets #100 ea 11/20/22 11/06/23 Unknown Rx rosuvastatin 10 mg tablet 10 mg PO DAILY 90 days #90 tabs 08/22/23 11/06/23 Unknown Rx blood sugar diagnostic #100 ea 10/22/23 11/06/23 Unknown Rx dulaglutide 0.75 mg/0.5 mL 0.75 mg SUBCUT Q7D 11/06/23 11/06/23 Unknown History subcutaneous pen injector (Trulicity) empagliflozin 25 mg tablet 25 mg PO DAILY 11/06/23 11/06/23 Unknown History (Jardiance) gabapentin 100 mg capsule 100 mg PO TID 11/06/23 11/06/23 Unknown History glipizide 5 mg tablet 5 mg PO BID 11/06/23 11/06/23 Unknown History omeprazole 20 mg capsule,delayed 20 mg PO DAILY 11/06/23 11/06/23 Unknown History release trazodone 50 mg tablet 50 mg PO BEDTIME 11/06/23 11/06/23 Unknown History Allergies Allergy/AdvReac Type Severity Reaction Status Date / Time No Known Allergies Allergy Verified 10/08/23 13:26 PFSH Acute PFSH: Medical History (Updated 11/06/23 @ 17:12 by Gautam Russell MD) Gastritis Hiatal hernia Diabetes mellitus Family History Other Cancer Diabetes Heart disease Social History Smoking and tobacco/nicotine status: current every day tobacco/nicotine user Alcohol intake: current Alcohol intake frequency: 0-2 Drinks per Day Alcohol type: beer Substance/Drug Use: never Adopted: No Caregiver/support person: No Lives independently: Yes service: No Current occupational status: unemployed Sexually active: Yes Do you think of yourself as: Straight/Heterosexual Current gender identity: Male Vitals/I&O/Wt Last Vital Signs Temp 97.6 F 11/06/23 14:09 Pulse 93 11/06/23 15:30 Resp 22 H 11/06/23 14:09 BP 86/47 11/06/23 15:30 Pulse Ox 96 11/06/23 15:30 O2 Del Method Room Air 11/06/23 15:30 11/06/23 11/06/23 11/06/23 06:59 14:59 22:59 Intake Total 1047.35 / 1047.35 Balance 1047.35 / 1047.35 Weight last 48 hrs Weight 56.699 kg Physical Exam Narrative: General: No acute distress, AO x 1, not following directions, confused, cachectic, not well-kept HEENT: PERRLA, pupils bilaterally equal and reactive Chest: Normal vesicular breath sounds, no added sounds, equal good air entry bilaterally CVS: S1-S2 regular, no murmurs, no tachycardia, no gallops, no rubs Abdomen: Soft, nontender, no organomegaly, bowel sounds present Neuro: No focal deficits, no facial deformity, AO x3, power 5/5 in all limbs Data 11/06/23 14:33 11/06/23 16:12 A&P Assessment and plan (1) Altered mental status: Most likely in setting of severe metabolic acidosis due to DKA. Check urine drug screen, alcohol level, Tylenol and salicylate level, CT head. Frequent orientation. Seizure and fall precautions. Aspiration precautions. Keep n.p.o. except sips of water for now. Haldol 1 mg every 4 hours as needed. Precedex drip. Qualifiers: Altered mental status type: disorientation Qualified Code(s): R41.0 - Disorientation, unspecified (2) DKA (diabetic ketoacidosis): Treatment as per DKA protocol. Start on insulin drip. Monitor BMP every 4 hours. Check blood sugars every hour. Keep potassium around 4. 2 L of IV fluid bolus followed by sodium bicarb drip. If blood sugar drops below 200 will check for volume D5NS with sodium bicarb drip pH over 7.2. Once pH is over 7.2 we will stop bicarb drip and switch to regular fluids without bicarb. Monitor ABG every 8 hours. Qualifiers: Diabetes mellitus complication detail: without coma Diabetes mellitus type: type 2 Qualified Code(s): E11.10 - Type 2 diabetes mellitus with ketoacidosis without coma (3) Acute kidney injury: Most likely in setting of severe dehydration from severe metabolic acidosis. Monitor BMP daily. Check urine lites, urine creatinine. Monitor urine output. (4) Metabolic acidosis: (5) Hypokalemia: (6) Non-compliant behavior: (7) Esophagitis: Protonix 40 mg IV twice daily for now. Plan Admit to ICU Full code N.p.o. except water Protonix for PUD prophylaxis Heparin 5000 square hourly for DVT prophylaxis. Attestations Medical Necessity Statement*: Admission for more than 2 midnights for management of DKA with severe metabolic acidosis leading to altered mental status Critical Care Time: The high probability of a clinically significant, sudden or life threatening deterioration of the patient's [endocrine, GI, renal, neuro] system(s) required my full and direct attention, intervention and personal management. The critical care time is as shown. This time is in addition to time spent performing any reported procedures but includes the following: [x] Data and vital sign review and interpretation [x] Patient assessment, examination and intervention [x] Documentation [x] Medication orders and management Critical Care Time (min): 80 Coding Level of Care Code Critical Care >/= 30 minutes Critical care time (in minutes): 80 The high probability of a clinically significant, sudden or life threatening deterioration, as referenced in this documentation, required my full and direct attention, intervention and personal management. The critical care time shown is in addition to time spent performing any reported separately billable procedures and includes the following: [x] Data and vital sign review and interpretation [x] Patient assessment, examination and intervention [x] Medication orders and management [x] Patient/Family updates as able [x] Care Coordination and Documentation. Diagnoses Altered mental status R41.0 Altered mental status type: disorientation DKA (diabetic ketoacidosis) E11.10 Diabetes mellitus complication detail: without coma Diabetes mellitus type: type 2 Acute kidney injury N17.9 Metabolic acidosis E87.20 Hypokalemia E87.6 Non-compliant behavior R46.89 Esophagitis K20.90
[2023-11-06] MEDS: ketamine 100 mg/mL Inj 5 mL 250 MG IM (17:12)
--- NOTE | 2023-11-06 17:16 | CTR_ITS ---
PROCEDURE INFORMATION: Exam: CT Head Without Contrast Exam date and time: 11/06/2023 11:55 PM Age: 63 years old Clinical indication: Altered mental status/memory loss; Additional info: AMS TECHNIQUE: Imaging protocol: Computed tomography of the head without contrast. Radiation optimization: All CT scans at this facility use at least one of these dose optimization techniques: automated exposure control; mA and/or kV adjustment per patient size (includes targeted exams where dose is matched to clinical indication); or iterative reconstruction. COMPARISON: No relevant prior studies available. RADIATION DOSE METRICS: Total DLP (mGy-cm): 847.4 FINDINGS: Brain: Normal. No hemorrhage. Unremarkable white matter. No mass effect. Cerebral ventricles: No ventriculomegaly. Paranasal sinuses: Frothy secretions in the right sphenoid sinus. Mastoid air cells: Visualized mastoid air cells are well aerated. Bones: Unremarkable. No acute fracture. Soft tissues: Unremarkable. CT/CT head wo con* [id number] IMPRESSION: No large territorial infarct or intracranial bleed.
--- NOTE | 2023-11-06 17:29 | XRR_ITS ---
PROCEDURE INFORMATION: Exam: XR Chest Exam date and time: 11/06/2023 5:41 PM Age: 63 years old Clinical indication: Device placement; Other: Central line placement TECHNIQUE: Imaging protocol: Radiologic exam of the chest. Views: 1 view. COMPARISON: CR XR chest 1V portable [id number] 11/06/2023 2:15 PM FINDINGS: Tubes, catheters and devices: Right IJ central venous catheter terminates at the SVC. Lungs: Unremarkable. No consolidation. Pleural spaces: Unremarkable. No pleural effusion. No pneumothorax. Heart/Mediastinum: Unremarkable. No cardiomegaly. Bones/joints: Chronic fracture deformities of multiple left ribs. Mild degenerative changes along the spine and right acromioclavicular joint. XR/XR chest 1V portable [id number] IMPRESSION: 1. Right IJ central venous catheter terminates at the SVC. 2. No acute cardiopulmonary findings.
[2023-11-06] MEDS: INSULIN REGULAR IN 0.9 % NACL 100 UNIT/100 ML BAG 5.5 UNIT IV (17:38)
[2023-11-06 18:37] LABS: Glucose Point of Care 298 mg/dL (70-110)
[2023-11-06 18:40] LABS: Iron 83 ug/dL (59-158); Percent Saturation 51.5 % (20-50); Salicylate 5.3 mg/dL (3-10); Thyroid Stimulating Hormone 0.36 uIU/mL (0.27-4.20); Total Iron Binding Capacity 161 mcg/dl; Unsaturated Iron Binding 78 ug/dL (112-347); Vitamin B12 1821 pg/mL (232-1245)
[2023-11-06] MEDS: ketamine 100 mg/mL Inj 5 mL IM (18:40)
--- NOTE | 2023-11-06 18:43 | PC.NURSE ---
MODERATE SEDATION MEDICATION ADMINISTRATION: 250MG KETAMINE IM 1713 VERBAL ORDERS FOR 100MG KETAMINE PER DR. JEFFERSON. 100MG KETAMINE IM 1717.
[2023-11-06] MEDS: pantoprazole 40 mg SDV IVP (18:56)
[2023-11-06 18:57] LABS: Acetaminophen < 5.0 ug/mL (10-30); Alcohol Level < 10 mg/dL (0-10)
--- NOTE | 2023-11-06 19:01 | PC.NURSE ---
Duplicate medications on SEP. A total of 3 Liters Normal Saline given at this time and 1 liter of sodium bicarb 150 meq running at 100 ml/hr infusing.
--- NOTE | 2023-11-06 19:06 | PC.NURSE ---
183 patient brought over to ICU via stretcher, patient alert to self only, hallucination (was given Ketamine). Dr. Russell called to clarify orders. Order for a total of 3 liters normal saline, Bicarb drip at 100 ml/hr, place shine catheter. Orders placed.
[2023-11-06 19:23] LABS: Add Urine Microscopic? YES; Bilirubin Urine Neg (Negative); Blood Urine 3+ (Negative); Glucose Urine UA 4+ (Normal); Ketones Urine 2+ (Negative); Leukocyte Esterase Urine Negative (Negative); Nitrate Urine Negative (Negative); Protein Urine Neg (Negative); Urine Appearance Clear (CLEAR); Urine Color Yellow (Yellow); Urobilinogen Urine Norm (Negative); pH Urine 5 (5-7)
[2023-11-06 19:33] LABS: Amorphous Sediment Urine TRACE /hpf; Bacteria Urine TRACE /hpf; RBC Urine 0-4 /hpf (0-2)
[2023-11-06 19:34] LABS: Add Urine Culture? No; Fine Granular Casts Urine 0-4 /lpf; Hyaline Casts Urine 0-4 /lpf
[2023-11-06 19:35] LABS: Amphetamines Screen Urine Negative (Negative); Barbiturates Screen Urine Negative (Negative); Benzodiazepines Screen Urine Negative (Negative); Cocaine Screen Urine Negative (Negative); Opiate Screen Urine Negative (Negative); PCP Screen Urine Negative (Negative); THC Screen Urine Positive (Negative)
[2023-11-06 19:44] LABS: Glucose Point of Care 214 mg/dL (70-110)
[2023-11-06 20:24] LABS: ABG PCO2 22.6 mmHg (35-45); ABG PH Result 7.23 (7.35-7.45); Arterial Blood Gas Hematocrit 34.4 % (42-52); Base Excess ABG -16.5 mmol/L (-2.0-2.0); Blood Gas Allen Test Pos; Blood Gas Sample Site Brachial, left; Blood Gas Sample Type Arterial; Carboxyhemoglobin 1.5 %THgb (0.4-20.1); HCO3 ABG 9.3 mmol/L (22-26); HGB O2 Sat 97.5 % (95-100); Ionized Calcium Level - ABG 1.3 mmol/L (1.1-1.4); Methemoglobin 0.6 % (0.4-1.5); Oxygen Saturation ABG 99.6; Potassium Level - ABG 3.5 mmol/L (3.5-5.0); Total Hemoglobin 11.2 g/dL (14-18)
[2023-11-06 20:42] LABS: Glucose Point of Care 218 mg/dL (70-110)
[2023-11-06 20:45] LABS: Troponin 5 6HR 41.38 ng/L (0-15)
[2023-11-06 20:47] LABS: Troponin 5 6HR Delta -3.62 ng/L (0-12)
[2023-11-06 20:50] LABS: Anion Gap 27.8 (5-19); Blood Urea Nitrogen 63 mg/dL (8-23); Calcium 7.6 mg/dL (8.5-10.5); Carbon Dioxide 10 mmol/L (22-29); Chloride 113 mmol/L (98-107); Glucose 212 mg/dL (65-115); Osmolality Calculated 328 mOsm/kg (285-295); Potassium 3.8 mmol/L (3.5-5.1); Sodium 147 mmol/L (136-145)
[2023-11-06 21:33] LABS: Glucose Point of Care 125 mg/dL (70-110)
[2023-11-06 22:41] LABS: Glucose Point of Care 142 mg/dL (70-110)
[2023-11-06 23:37] LABS: Glucose Point of Care 105 mg/dL (70-110)
[2023-11-07] VITALS (50 sets, daily range): BP systolic 90–128; BP diastolic 46–70; PULSE 69–103; RESP 14–26; TEMP 36.6–37.1; O2SAT 92–99
[2023-11-07 00:19] LABS: Anion Gap 23.8 (5-19); Blood Urea Nitrogen 56 mg/dL (8-23); Carbon Dioxide 13 mmol/L (22-29); Chloride 116 mmol/L (98-107); Creatinine Clr Calc Pharmacy 34.1244; Glomerular Filtration Rate 38.4 mL/min (90-130); Glucose 107 mg/dL (65-115); Osmolality Calculated 326 mOsm/kg (285-295); Sodium 150 mmol/L (136-145)
[2023-11-07 00:38] LABS: Glucose Point of Care 95 mg/dL (70-110)
[2023-11-07 00:39] LABS: Potassium 2.8 mmol/L (3.5-5.1)
[2023-11-07] MEDS: lidocaine 1% 5 ML in potassium chloride premix 100 ML 26.25 ML IV (01:12)
[2023-11-07] MEDS: D5-NS 0.45% + KCL 20 mEq 20 MEQ/1,000 ML BAG 125 MEQ IV ×2 (01:12→09:03)
[2023-11-07 01:53] LABS: Glucose Point of Care 100 mg/dL (70-110)
[2023-11-07 02:40] LABS: Glucose Point of Care 132 mg/dL (70-110)
[2023-11-07 04:01] LABS: Glucose Point of Care 124 mg/dL (70-110)
[2023-11-07 04:06] LABS: ABG PCO2 26.2 mmHg (35-45); ABG PH Result 7.37 (7.35-7.45); Alveolar-Arterial Oxygen Gradi 2.8 mmHg (5-10); Arterial Blood Gas Hematocrit 33.4 % (42-52); Blood Gas Allen Test Pos; Blood Gas Sample Site Brachial, left; Blood Gas Sample Type Arterial; Carboxyhemoglobin 1.5 %THgb (0.4-20.1); HCO3 ABG 14.9 mmol/L (22-26); HGB O2 Sat 97.2 % (95-100); Ionized Calcium Level - ABG 1.2 mmol/L (1.1-1.4); Methemoglobin 0.9 % (0.4-1.5); Oxygen Saturation ABG 99.5; PO2 ABG 93.2 mmHg (80.0-100.0); PO2 FiO2 Ratio Arterial Blood 0; Potassium Level - ABG 3.2 mmol/L (3.5-5.0); Total Hemoglobin 10.9 g/dL (14-18)
[2023-11-07] MEDS: pantoprazole 40 mg SDV IVP ×2 (04:30→17:22)
[2023-11-07 04:40] LABS: Glucose Point of Care 155 mg/dL (70-110)
[2023-11-07 05:01] LABS: Basophils % 0.2 %; Eosinophils # 0.1 10^3/uL (0.0-0.8); Eosinophils % 0.7 %; Hematocrit 30.9 % (37-53); Lymphocytes # 0.5 10^3/uL (0.8-4.8); Lymphocytes % 5.1 %; Mean Corpuscular HGB Conc 33.3 g/dL (30-55); Mean Corpuscular Hemoglobin 27.5 pg (27-33); Mean Corpuscular Volume 82.6 fl (82-101); Mean Platelet Volume 9.9 fL (7.4-10.4); Monocytes # 0.7 10^3/uL (0.2-0.9); Monocytes % 7.6 %; Neutrophils # 7.72 10^3/uL (1.8-7.7); Neutrophils % 85.7 %; Nucleated Red Blood Cells % 0 %; Platelet Count 133 10^3/cmm (157-399); Red Blood Count 3.74 10^6/uL (3.85-5.65); Red Cell Distribution Width 13.5 % (12.1-15.1)
[2023-11-07 05:21] LABS: Alanine Aminotransferase 16 U/L (0-41); Albumin Level 2.8 g/dL (3.5-5.2); Alkaline Phosphatase 77 U/L (40-130); Anion Gap 18.5 (5-19); Aspartate Amino Transferase 25 U/L (0-40); Blood Urea Nitrogen 47 mg/dL (8-23); Calcium 8.1 mg/dL (8.5-10.5); Carbon Dioxide 16 mmol/L (22-29); Chloride 120 mmol/L (98-107); Creatinine Clr Calc Pharmacy 38.3899; Glucose 110 mg/dL (65-115); Magnesium 2.1 mg/dL (1.7-2.3); Osmolality Calculated 325 mOsm/kg (285-295); Potassium 3.5 mmol/L (3.5-5.1); Sodium 151 mmol/L (136-145); Total Bilirubin 0.2 mg/dL (0.15-1.2); Total Protein 4.8 g/dL (6.6-8.7)
[2023-11-07 05:24] LABS: Chol HDL Ratio 1.83 mg/dL (1.0-5.00); Cholesterol 75 mg/dL (0-200); HDL Cholesterol 41 mg/dL (60-100); LDL Cholesterol Calculated 15 mg/dL (50-129); LDL HDL Ratio 0.37 RATIO (0.00-3.22); Triglycerides 94 mg/dL (0-150)
[2023-11-07 05:40] LABS: Folate Level 11.8 ng/mL (4.5-32.2)
[2023-11-07 05:50] LABS: Glucose Point of Care 115 mg/dL (70-110)
[2023-11-07 05:57] LABS: Phosphorus 0.8 mg/dL (2.5-4.5)
[2023-11-07] MEDS: potassium phosphate (mEq K) 40 MEQ in sodium chloride 0.9% (100 ml) 100 ML 27.2699999999999996 MEQ IV ×2 (06:23→11:56)
[2023-11-07 07:16] LABS: Glucose Point of Care 117 mg/dL (70-110)
[2023-11-07 09:11] LABS: Glucose Point of Care 106 mg/dL (70-110)
[2023-11-07 09:11] LABS: Glucose Point of Care 109 mg/dL (70-110)
[2023-11-07] MEDS: dextrose 5% 1,000 ML 125 ML IV ×2 (10:09→19:57)
[2023-11-07 10:13] LABS: Glucose Point of Care 123 mg/dL (70-110)
[2023-11-07 11:18] LABS: Glucose Point of Care 114 mg/dL (70-110)
[2023-11-07 11:22] LABS: Blood Urea Nitrogen 37 mg/dL (8-23); Calcium 7.9 mg/dL (8.5-10.5); Carbon Dioxide 18 mmol/L (22-29); Chloride 121 mmol/L (98-107); Creatinine Clr Calc Pharmacy 48.3075; Glomerular Filtration Rate 55.9 mL/min (90-130); Glucose 126 mg/dL (65-115); Osmolality Calculated 324 mOsm/kg (285-295); Sodium 152 mmol/L (136-145)
[2023-11-07 12:01] LABS: Glucose Point of Care 124 mg/dL (70-110)
--- NOTE | 2023-11-07 13:20 | P.PN_ITS ---
Subjective 2 Subjective: No acute events overnight. Today morning patient is a lot more awake and alert but continues to remain confused. He is alert to self. Denies any nausea, vomiting. He has had a good urine output. Has remained hemodynamically stable and afebrile on room air. Vitals/I&O/Wt Last Vital Signs Temp 97.8 F 11/07/23 07:30 Pulse 85 11/07/23 10:18 Resp 16 11/07/23 08:15 BP 110/60 11/07/23 08:15 Pulse Ox 97 11/07/23 10:18 O2 Del Method Room Air 11/07/23 10:18 O2 Flow Rate 6 11/06/23 17:30 11/06/23 11/07/23 11/07/23 22:59 06:59 14:59 Intake Total 3122.883 / 3122.883 1410.416 / 4533.299 1229.2926 / 1229.2926 Output Total 1525 / 1525 1200 / 2725 Balance 1597.883 / 1597.883 210.416 / 3598.269 3781.2926 / 1229.2926 Weight last 48 hrs Weight 57.969 kg Weight 56.699 kg Physical Exam 2 Narrative: General: No acute distress, AO x 1-2, confused, cachectic, HEENT: PERRLA, pupils bilaterally equal and reactive Chest: Normal vesicular breath sounds, no added sounds, equal good air entry bilaterally CVS: S1-S2 regular, no murmurs, no tachycardia, no gallops, no rubs Abdomen: Soft, nontender, no organomegaly, bowel sounds present Neuro: No focal deficits, no facial deformity, AO x3, power 5/5 in all limbs Urinary Catheter Management: Casper: Cath Placed During This Visit: yes Reason for Continuing Indwelling Catheter: Accurate Measurement of Urinary Output in Critically Ill Patients Urinary Catheter Date of Insertion: 11/06/23 Urinary Catheter Time of Insertion: 16:35 Data 11/07/23 04:30 11/07/23 10:57 Micro: Microbiology 11/06/23 18:40 Bacterial Antigens - Final Urine Kidney 11/06/23 18:40 Legionella Urinary Antigen - Final Unknown Source A&P Assessment and plan (1) Altered mental status: Most likely in setting of hypernatremia and electrolyte abnormalities. Appreciate urine drug screen, alcohol level, Tylenol and salicylate level, CT head. Frequent orientation. Seizure and fall precautions. Aspiration precautions. Xanax as needed. Qualifiers: Altered mental status type: disorientation Qualified Code(s): R41.0 - Disorientation, unspecified (2) DKA (diabetic ketoacidosis): Resolving. Anion gap closed. Will continue with insulin drip till patient on D5w and NPO. Monitor anion gap Q4h, BMP Q8h. Check blood sugars every hour. Keep potassium around 4. PH has normalised. Will hold off on ABG for now. Qualifiers: Diabetes mellitus complication detail: without coma Diabetes mellitus type: type 2 Qualified Code(s): E11.10 - Type 2 diabetes mellitus with ketoacidosis without coma (3) Hypernatremia: Sodium trending up, due to dehydration. Switich fluid to D5 @125 cc/hr. Monitor urine output. BMP as above. (4) Acute kidney injury: Most likely in setting of severe dehydration from severe metabolic acidosis. Resolving. Creatinine trending down to 1.3. Monitor BMP Q8h. Check urine lites, urine creatinine. Monitor urine output. (5) Hypokalemia: Replete with 80 meq orally additionally. Will continue to monitor. (6) Metabolic acidosis: (7) Non-compliant behavior: (8) Esophagitis: Protonix 40 mg IV twice daily for now. Plan Anxiety: Restart home dose of gabapentin. Full code Will try to advance CLD as per mentation. Protonix for PUD prophylaxis Heparin 5000 square hourly for DVT prophylaxis. Attestations 2 Medical Necessity Statement*: Requires further hospitalization for management of severe electrolyte abnormality, LORETTA in a patient who was initially admitted for diabetic ketoacidosis Critical Care Time: The high probability of a clinically significant, sudden or life threatening deterioration of the patient's [Nephro, endocrinology] system(s) required my full and direct attention, intervention and personal management. The critical care time is as shown. This time is in addition to time spent performing any reported procedures but includes the following: [x] Data and vital sign review and interpretation [x] Patient assessment, examination and intervention [x] Documentation [x] Medication orders and management Critical Care Time (min): 70 Coding Level of Care Code Critical Care >/= 30 minutes Critical care time (in minutes): 70 The high probability of a clinically significant, sudden or life threatening deterioration, as referenced in this documentation, required my full and direct attention, intervention and personal management. The critical care time shown is in addition to time spent performing any reported separately billable procedures and includes the following: [x] Data and vital sign review and interpretation [x ] Patient assessment, examination and intervention [x] Medication orders and management [x] Patient/Family updates as able [x] Care Coordination and Documentation. Diagnoses Altered mental status R41.0 Altered mental status type: disorientation DKA (diabetic ketoacidosis) E11.10 Diabetes mellitus complication detail: without coma Diabetes mellitus type: type 2 Hypernatremia E87.0 Acute kidney injury N17.9 Hypokalemia E87.6 Metabolic acidosis E87.20 Non-compliant behavior R46.89 Esophagitis K20.90
[2023-11-07] MEDS: potassium chloride ER 20 mEq Tablet 40 MEQ PO ×3 (14:10→17:22)
[2023-11-07 14:24] LABS: Glucose Point of Care 149 mg/dL (70-110)
[2023-11-07 14:34] LABS: Glucose Point of Care 204 mg/dL (70-110)
[2023-11-07 15:01] LABS: Glucose Point of Care 206 mg/dL (70-110)
[2023-11-07 16:23] LABS: Glucose Point of Care 183 mg/dL (70-110)
[2023-11-07 17:34] LABS: Glucose Point of Care 181 mg/dL (70-110)
[2023-11-07 18:31] LABS: Glucose Point of Care 168 mg/dL (70-110)
[2023-11-07 19:18] LABS: Anion Gap 18.5 (5-19); Blood Urea Nitrogen 30 mg/dL (8-23); Calcium 7.5 mg/dL (8.5-10.5); Carbon Dioxide 18 mmol/L (22-29); Chloride 117 mmol/L (98-107); Creatinine Clr Calc Pharmacy 57.1803; Glomerular Filtration Rate 67.8 mL/min (90-130); Glucose 193 mg/dL (65-115); Osmolality Calculated 321 mOsm/kg (285-295); Phosphorus 1.7 mg/dL (2.5-4.5); Potassium 3.5 mmol/L (3.5-5.1); Sodium 150 mmol/L (136-145)
[2023-11-07 19:26] LABS: Glucose Point of Care 166 mg/dL (70-110)
--- NOTE | 2023-11-07 19:41 | PC.NURSE ---
Shift summary; Pt remained resting in bed throughout the shift. He remains pleasantly befuddled. Could answer his name and place being hospital. He has pulled at monitoring wires and O2 sensor this am. He remains on insulin gtt, his o still low. IVF changed today to D5W, rate remained 125. He has had multiple potassium and potassium phosphate replacements today. He has had 1850 ml urine output. He was incontinent of BM and seemed unaware that he had scooted around in the bed and smeared it all over himself. Robyn care and linen change provided, he was cooperative. He was started on a clear consistent carb liquid diet today. e has consumed less than half of his meals.
[2023-11-07 21:05] LABS: Glucose Point of Care 200 mg/dL (70-110)
[2023-11-07 22:08] LABS: Glucose Point of Care 192 mg/dL (70-110)
[2023-11-07 23:05] LABS: Anion Gap 15.2 (5-19); Blood Urea Nitrogen 24 mg/dL (8-23); Calcium 7.9 mg/dL (8.5-10.5); Carbon Dioxide 20 mmol/L (22-29); Chloride 115 mmol/L (98-107); Glomerular Filtration Rate 85.5 mL/min (90-130); Glucose 198 mg/dL (65-115); Magnesium 1.8 mg/dL (1.7-2.3); Osmolality Calculated 314 mOsm/kg (285-295); Phosphorus 1.4 mg/dL (2.5-4.5); Potassium 3.2 mmol/L (3.5-5.1); Sodium 147 mmol/L (136-145)
[2023-11-07 23:58] LABS: Glucose Point of Care 175 mg/dL (70-110)
[2023-11-07] MEDS: insulin glargine 100 units/1 mL 10 UNIT SUBCUT (23:59)
[2023-11-08] VITALS (26 sets, daily range): BP systolic 113–150; BP diastolic 62–91; PULSE 66–89; RESP 16–30; TEMP 36.1–37.1; O2SAT 90–99
[2023-11-08 02:43] LABS: Glucose Point of Care 187 mg/dL (70-110)
[2023-11-08] MEDS: pantoprazole 40 mg SDV IVP ×2 (05:19→16:40)
[2023-11-08 05:56] LABS: Basophils % 0.2 %; Eosinophils # 0.1 10^3/uL (0.0-0.8); Eosinophils % 0.9 %; Hematocrit 29.9 % (37-53); Lymphocytes # 0.7 10^3/uL (0.8-4.8); Lymphocytes % 7.2 %; Mean Corpuscular HGB Conc 34.4 g/dL (30-55); Mean Corpuscular Hemoglobin 28.1 pg (27-33); Mean Corpuscular Volume 81.5 fl (82-101); Mean Platelet Volume 10.4 fL (7.4-10.4); Monocytes # 0.8 10^3/uL (0.2-0.9); Monocytes % 8.2 %; Neutrophils # 8.33 10^3/uL (1.8-7.7); Neutrophils % 82.5 %; Nucleated Red Blood Cells % 0 %; Platelet Count 123 10^3/cmm (157-399); Red Blood Count 3.67 10^6/uL (3.85-5.65); Red Cell Distribution Width 14.1 % (12.1-15.1)
[2023-11-08 06:23] LABS: Alanine Aminotransferase 14 U/L (0-41); Albumin Level 2.8 g/dL (3.5-5.2); Alkaline Phosphatase 74 U/L (40-130); Anion Gap 21.1 (5-19); Aspartate Amino Transferase 20 U/L (0-40); Blood Urea Nitrogen 19 mg/dL (8-23); Carbon Dioxide 17 mmol/L (22-29); Chloride 112 mmol/L (98-107); Creatinine Clr Calc Pharmacy 89.4086; Globulin 2.2 g/dL (1.3-4.6); Glucose 207 mg/dL (65-115); Osmolality Calculated 312 mOsm/kg (285-295); Potassium 3.1 mmol/L (3.5-5.1); Sodium 147 mmol/L (136-145); Total Bilirubin 0.3 mg/dL (0.15-1.2)
[2023-11-08] MEDS: dextrose 5% 1,000 ML 75 ML IV (06:39)
[2023-11-08 07:55] LABS: Glucose Point of Care 192 mg/dL (70-110)
[2023-11-08] MEDS: insulin lispro 100 unit/1 mL SUBCUT ×3 (07:58→20:16)
[2023-11-08 12:13] LABS: Glucose Point of Care 210 mg/dL (70-110)
[2023-11-08] MEDS: potassium chloride ER 20 mEq Tablet 40 MEQ PO ×3 (12:37→17:43)
[2023-11-08] MEDS: dextrose 5% + KCl 20 mEq 20 MEQ/1,000 ML BAG 75 MEQ IV (12:51)
[2023-11-08] MEDS: gabapentin 100 mg Capsule PO ×2 (15:15→20:17)
[2023-11-08] MEDS: ondansetron 2 mg/ML SDV 2 mL 4 MG IVP (15:19)
--- NOTE | 2023-11-08 15:55 | P.PN_ITS ---
Subjective 2 Subjective: No acute events overnight. Patient has remained hemodynamically stable and afebrile. Up to 2900 cc of urine last 24 hours. Patient is more awake and alert today. Able to have complete conversation but still having slight episodes of confusion. Vitals/I&O/Wt Last Vital Signs Temp 96.9 F L 11/08/23 09:00 Pulse 80 11/08/23 11:11 Resp 21 H 11/08/23 09:00 BP 117/91 11/08/23 09:00 Pulse Ox 98 11/08/23 11:11 O2 Del Method Room Air 11/08/23 11:11 O2 Flow Rate 6 11/06/23 17:30 11/08/23 11/08/23 11/08/23 06:59 14:59 22:59 Intake Total 1430.668 / 3961.9712 350 / 350 Output Total 1900 / 3750 125 / 125 Balance -469.332 / 211.9712 225 / 225 Weight last 48 hrs Weight 59.012 kg Weight 58.06 kg Weight 57.969 kg Physical Exam 2 Narrative: General: No acute distress, AO x 2-3, confused, cachectic, HEENT: PERRLA, pupils bilaterally equal and reactive Chest: Normal vesicular breath sounds, no added sounds, equal good air entry bilaterally CVS: S1-S2 regular, no murmurs, no tachycardia, no gallops, no rubs Abdomen: Soft, nontender, no organomegaly, bowel sounds present Neuro: No focal deficits, no facial deformity, AO x3, power 5/5 in all limbs Urinary Catheter Management: Casper: Cath Placed During This Visit: yes Reason for Continuing Indwelling Catheter: Accurate Measurement of Urinary Output in Critically Ill Patients Urinary Catheter Date of Insertion: 11/06/23 Urinary Catheter Time of Insertion: 16:35 Data 11/08/23 05:14 11/08/23 05:14 A&P Assessment and plan (1) Altered mental status: Resolving. Most likely in setting of hypernatremia and electrolyte abnormalities. Appreciate urine drug screen, alcohol level, Tylenol and salicylate level, CT head. Frequent orientation. Seizure and fall precautions. Aspiration precautions. Qualifiers: Altered mental status type: disorientation Qualified Code(s): R41.0 - Disorientation, unspecified (2) DKA (diabetic ketoacidosis): Resolved. Anion gap closed to slightly elevated. Continue with insulin sliding scale at low-dose protocol. Add Lantus 10 units nightly. Patient still requiring D5W for hypernatremia. Will continue with D5W for now and change insulin as per requirements. Continue with cardiac carb consistent diet changed to mechanical soft. Monitor BMP in evening. Target potassium around 4. Check blood sugar ACHS. Qualifiers: Diabetes mellitus complication detail: without coma Diabetes mellitus type: type 2 Qualified Code(s): E11.10 - Type 2 diabetes mellitus with ketoacidosis without coma (3) Hypernatremia: Sodium slight improvement to 147. Continue with D5W at 125 cc/h with 20 mg of potassium. Repeat BMP in evening. Mentation improving. (4) Acute kidney injury: Resolved. Creatinine down to 0.8. Monitor BMP as above. Continue with strict input output charting. (5) Hypokalemia: Continues to have severe hypokalemia. Added potassium to fluids. Replete with 120 mEq additionally. Repeat potassium level in evening. (6) Metabolic acidosis: Most likely a combination of diabetic ketoacidosis and starvation ketosis. (7) Non-compliant behavior: (8) Esophagitis: Protonix 40 mg IV twice daily for now. Plan Restart other home medications including gabapentin. Given recurrent admission with altered mental status at different hospitals, severe DKA with severe metabolic acidosis. Patient does not seem to have good understanding of his medications. Seems confused. Patient might need more help now to take care of his ADLs and medications going forward. Discussed in detail with the patient that he would benefit from SNF placement versus more involved care for his health going forward. He wants us to discuss with patient's son before making any arrangements. Tried calling Mr. Ly over the phone. Not able to get in touch left a message. Full code Carb consistent mechanical soft diet Protonix for PUD prophylaxis Heparin 5000 square hourly for DVT prophylaxis. Attestations 2 Medical Necessity Statement*: Requires further hospitalization for management of metabolic acidosis in setting of starvation ketosis and diabetic ketoacidosis, hypernatremia and hypokalemia Diagnoses Altered mental status R41.0 Altered mental status type: disorientation DKA (diabetic ketoacidosis) E11.10 Diabetes mellitus complication detail: without coma Diabetes mellitus type: type 2 Hypernatremia E87.0 Acute kidney injury N17.9 Hypokalemia E87.6 Metabolic acidosis E87.20 Non-compliant behavior R46.89 Esophagitis K20.90
[2023-11-08 16:40] LABS: Anion Gap 17.5 (5-19); Blood Urea Nitrogen 14 mg/dL (8-23); Calcium 8.2 mg/dL (8.5-10.5); Carbon Dioxide 19 mmol/L (22-29); Chloride 109 mmol/L (98-107); Creatinine Clr Calc Pharmacy 102.1812; Glomerular Filtration Rate 114.3 mL/min (90-130); Glucose 159 mg/dL (65-115); Osmolality Calculated 298 mOsm/kg (285-295); Potassium 3.5 mmol/L (3.5-5.1); Sodium 142 mmol/L (136-145)
[2023-11-08 16:48] LABS: Glucose Point of Care 133 mg/dL (70-110)
[2023-11-08] MEDS: sodium chlor 0.45% +KCl 20 mEq 20 MEQ/1,000 ML BAG 75 MEQ IV (17:49)
--- NOTE | 2023-11-08 19:27 | PC.NURSE ---
Shift Summary: Uneventful shift. Patient was up to a chair for about 5 hours today. Transitioned to soft mechanical diet which he tolerated well. Blood sugars remained under control. Still some underlying confusion, but has improved throughout the day.
[2023-11-08 20:10] LABS: Glucose Point of Care 165 mg/dL (70-110)
[2023-11-08] MEDS: trazodone 50 mg Tablet PO (20:17)
--- NOTE | 2023-11-08 21:00 | PC.NURSE ---
Transfer Transferred to [place] via wheelchair, tolerated well.
[2023-11-08 21:06] LABS: Glucose Point of Care 167 mg/dL (70-110)
[2023-11-09] VITALS (9 sets, daily range): BP systolic 104–136; BP diastolic 53–72; PULSE 75–95; RESP 14–17; TEMP 36.4–37.1; O2SAT 96–99
[2023-11-09] MEDS: sodium chlor 0.45% +KCl 20 mEq 20 MEQ/1,000 ML BAG 75 MEQ IV (03:32)
[2023-11-09] MEDS: pantoprazole 40 mg SDV IVP ×2 (04:21→16:17)
[2023-11-09 05:55] LABS: Basophils % 0.3 %; Eosinophils # 0.1 10^3/uL (0.0-0.8); Hematocrit 33.9 % (37-53); Lymphocytes # 0.9 10^3/uL (0.8-4.8); Lymphocytes % 8.2 %; Mean Corpuscular Hemoglobin 28.1 pg (27-33); Mean Corpuscular Volume 85.2 fl (82-101); Mean Platelet Volume 10.2 fL (7.4-10.4); Monocytes # 0.9 10^3/uL (0.2-0.9); Monocytes % 8.6 %; Neutrophils # 8.73 10^3/uL (1.8-7.7); Neutrophils % 80.6 %; Nucleated Red Blood Cells % 0 %; Platelet Count 128 10^3/cmm (157-399); Red Blood Count 3.98 10^6/uL (3.85-5.65); Red Cell Distribution Width 14.8 % (12.1-15.1); White Blood Count 10.83 10^3/uL (3.29-11.43)
[2023-11-09 06:11] LABS: Potassium 4.8 mmol/L (3.5-5.1); Sodium 142 mmol/L (136-145)
[2023-11-09 06:25] LABS: Alanine Aminotransferase 14 U/L (0-41); Alkaline Phosphatase 78 U/L (40-130); Anion Gap 26.7 (5-19); Aspartate Amino Transferase 15 U/L (0-40); Blood Urea Nitrogen 15 mg/dL (8-23); Carbon Dioxide 11 mmol/L (22-29); Chloride 109 mmol/L (98-107); Creatinine Clr Calc Pharmacy 90.4654; Glucose 173 mg/dL (65-115); Osmolality Calculated 299 mOsm/kg (285-295); Total Bilirubin 0.4 mg/dL (0.15-1.2)
[2023-11-09 06:27] LABS: Glucose Point of Care 191 mg/dL (70-110)
[2023-11-09] MEDS: insulin lispro 100 unit/1 mL SUBCUT ×4 (09:04→21:29)
[2023-11-09] MEDS: gabapentin 100 mg Capsule PO ×3 (09:05→20:36)
[2023-11-09] MEDS: atorvastatin 40 mg Tablet PO (09:06)
[2023-11-09 11:27] LABS: Glucose Point of Care 220 mg/dL (70-110)
[2023-11-09 13:52] LABS: Anion Gap 22.7 (5-19); Blood Urea Nitrogen 15 mg/dL (8-23); Calcium 8.5 mg/dL (8.5-10.5); Carbon Dioxide 11 mmol/L (22-29); Chloride 105 mmol/L (98-107); Creatinine Clr Calc Pharmacy 90.4654; Glucose 153 mg/dL (65-115); Osmolality Calculated 284 mOsm/kg (285-295); Potassium 3.7 mmol/L (3.5-5.1); Sodium 135 mmol/L (136-145)
[2023-11-09] MEDS: sodium chlor 0.45% +KCl 20 mEq 20 MEQ/1,000 ML BAG 125 MEQ IV (16:17)
[2023-11-09 16:24] LABS: Glucose Point of Care 208 mg/dL (70-110)
--- NOTE | 2023-11-09 16:29 | P.PN_ITS ---
Subjective 2 Subjective: No acute events overnight. Patient has remained hemodynamically stable and afebrile. Today morning awake and alert having his meals. Asking when can he go home. Denies any nausea, vomiting, headache. Having multiple episodes of diarrhea. Vitals/I&O/Wt Last Vital Signs Temp 97.8 F 11/09/23 10:13 Pulse 88 11/09/23 10:13 Resp 16 11/09/23 10:13 BP 115/72 11/09/23 10:13 Pulse Ox 97 11/09/23 10:13 O2 Del Method Room Air 11/09/23 10:13 O2 Flow Rate 6 11/06/23 17:30 11/09/23 11/09/23 11/09/23 06:59 14:59 22:59 Intake Total 728.75 / 2515.00 1127.5 / 1127.5 352.5 / 1480.0 Output Total 600 / 2275 Balance 128.75 / 240.00 1127.5 / 1127.5 352.5 / 1480.0 Weight last 48 hrs Weight 60.963 kg Weight 60.963 kg Weight 59.012 kg Physical Exam 2 Narrative: General: No acute distress, AO x 2-3, confused, cachectic, HEENT: PERRLA, pupils bilaterally equal and reactive Chest: Normal vesicular breath sounds, no added sounds, equal good air entry bilaterally CVS: S1-S2 regular, no murmurs, no tachycardia, no gallops, no rubs Abdomen: Soft, nontender, no organomegaly, bowel sounds present Neuro: No focal deficits, no facial deformity, AO x3, power 5/5 in all limbs Urinary Catheter Management: [place]: Cath Placed During This Visit: yes, but has since been removed by the nurse Reason for Continuing Indwelling Catheter: Decision to DC Catheter Urinary Catheter Date of Insertion: 11/06/23 Urinary Catheter Time of Insertion: 16:35 Date Urinary Catheter Removed: 11/08/23 Time Urinary Catheter Discontinued: 18:21 Data 11/09/23 05:43 11/09/23 13:08 Micro: Microbiology 11/09/23 09:30 Occult Blood (FIT) - Final Stool Routine Collection A&P Assessment and plan (1) Altered mental status: Resolved. Most likely in setting of hypernatremia and electrolyte abnormalities. Appreciate urine drug screen, alcohol level, Tylenol and salicylate level, CT head. Frequent orientation. Seizure and fall precautions. Aspiration precautions. Qualifiers: Altered mental status type: disorientation Qualified Code(s): R41.0 - Disorientation, unspecified (2) DKA (diabetic ketoacidosis): Resolved. Anion gap closed to slightly elevated. Continue with insulin sliding scale at low-dose protocol. Add Lantus 10 units nightly. Patient still requiring D5W for hypernatremia. Will continue with D5W for now and change insulin as per requirements. Continue with cardiac carb consistent diet changed to mechanical soft. Monitor BMP in evening. Target potassium around 4. Check blood sugar ACHS. Qualifiers: Diabetes mellitus complication detail: without coma Diabetes mellitus type: type 2 Qualified Code(s): E11.10 - Type 2 diabetes mellitus with ketoacidosis without coma (3) Hypernatremia: Sodium slight improvement to 147. Continue with D5W at 125 cc/h with 20 mg of potassium. Repeat BMP in evening. Mentation improving. (4) Acute kidney injury: Resolved. Creatinine down to 0.8. Monitor BMP as above. Continue with strict input output charting. (5) Hypokalemia: Continues to have severe hypokalemia. Added potassium to fluids. Replete with 120 mEq additionally. Repeat potassium level in evening. (6) Metabolic acidosis: Most likely a combination of diabetic ketoacidosis and starvation ketosis. (7) Non-compliant behavior: (8) Esophagitis: Protonix 40 mg IV twice daily for now. Plan Restart other home medications including gabapentin. Plan for the day: Patient's anion gap widening again. 25 today. Patient though seems to be awake and alert. Anion gap metabolic acidosis most likely in setting of dehydration and starvation ketosis. DKA seems to have resolved. Patient takes Jardiance at home. Unlikely to cause euvolemic DKA. Denies any new complaints. Increase fluid rate to 125 cc/h. Repeat BMP now and then 6 hours. Continue with insulin sliding scale at current dose. Check stool studies including C. difficile. If C. difficile is negative will plan for Imodium. Advance to regular carb consistent diet. Replete potassium with 40 mg oral. Hemoglobin stable at 11.2. No concerns for GI bleed. Continue with Protonix twice daily. Add Carafate before meals and at bedtime stool for occult blood is positive. Patient does give history of severe gastritis. Physical therapy evaluation. Given recurrent admission with altered mental status at different hospitals, severe DKA with severe metabolic acidosis. Patient does not seem to have good understanding of his medications. Seems confused. Patient might need more help now to take care of his ADLs and medications going forward. Discussed in detail with the patient that he would benefit from SNF placement versus more involved care for his health going forward. He wants us to discuss with patient's son before making any arrangements. Tried calling Mr. Ly over the phone. Not able to get in touch left a message. Full code Carb consistent mechanical soft diet Protonix for PUD prophylaxis Heparin 5000 square hourly for DVT prophylaxis. Attestations 2 Medical Necessity Statement*: Requires further hospitalization for management of high anion gap metabolic acidosis in setting of dehydration with starvation ketosis and a patient who was in DKA, physical deconditioning Diagnoses Altered mental status R41.0 Altered mental status type: disorientation DKA (diabetic ketoacidosis) E11.10 Diabetes mellitus complication detail: without coma Diabetes mellitus type: type 2 Hypernatremia E87.0 Acute kidney injury N17.9 Hypokalemia E87.6 Metabolic acidosis E87.20 Non-compliant behavior R46.89 Esophagitis K20.90
[2023-11-09 17:23] LABS: C.Diff PCR (Lab) NEGATIVE (Negative)
[2023-11-09] MEDS: sucralfate 1 gm/10 mL Oral Liq UDC PO ×2 (17:48→20:36)
[2023-11-09] MEDS: trazodone 50 mg Tablet PO (20:36)
[2023-11-09 20:40] LABS: Anion Gap 18.2 (5-19); Blood Urea Nitrogen 12 mg/dL (8-23); Calcium 7.9 mg/dL (8.5-10.5); Carbon Dioxide 14 mmol/L (22-29); Chloride 107 mmol/L (98-107); Creatinine Clr Calc Pharmacy 90.4654; Glucose 196 mg/dL (65-115); Osmolality Calculated 285 mOsm/kg (285-295); Potassium 4.2 mmol/L (3.5-5.1); Sodium 135 mmol/L (136-145)
[2023-11-09 21:07] LABS: Glucose Point of Care 178 mg/dL (70-110)
[2023-11-10] VITALS (7 sets, daily range): BP systolic 93–114; BP diastolic 56–73; PULSE 74–101; RESP 16–18; TEMP 36.5–36.8; O2SAT 93–99
[2023-11-10] MEDS: sodium chlor 0.45% +KCl 20 mEq 20 MEQ/1,000 ML BAG 125 MEQ IV ×3 (01:44→17:07)
[2023-11-10] MEDS: pantoprazole 40 mg SDV IVP ×2 (05:04→17:03)
[2023-11-10 06:25] LABS: Glucose Point of Care 214 mg/dL (70-110)
[2023-11-10 07:29] LABS: Basophils # 0.1 10^3/uL (0.0-0.1); Basophils % 0.4 %; Eosinophils # 0.1 10^3/uL (0.0-0.8); Eosinophils % 0.8 %; Hematocrit 35.2 % (37-53); Lymphocytes % 7.7 %; Mean Corpuscular HGB Conc 32.4 g/dL (30-55); Mean Corpuscular Hemoglobin 27.3 pg (27-33); Mean Corpuscular Volume 84.2 fl (82-101); Mean Platelet Volume 10.1 fL (7.4-10.4); Monocytes # 1.2 10^3/uL (0.2-0.9); Monocytes % 9.3 %; Neutrophils # 10.53 10^3/uL (1.8-7.7); Neutrophils % 80.2 %; Nucleated Red Blood Cells % 0 %; Platelet Count 169 10^3/cmm (157-399); Red Blood Count 4.18 10^6/uL (3.85-5.65); Red Cell Distribution Width 14.7 % (12.1-15.1); White Blood Count 13.13 10^3/uL (3.29-11.43)
[2023-11-10 07:50] LABS: Alanine Aminotransferase 12 U/L (0-41); Albumin Level 2.8 g/dL (3.5-5.2); Alkaline Phosphatase 89 U/L (40-130); Anion Gap 26.5 (5-19); Aspartate Amino Transferase 11 U/L (0-40); Blood Urea Nitrogen 12 mg/dL (8-23); Calcium 8.3 mg/dL (8.5-10.5); Chloride 106 mmol/L (98-107); Creatinine Clr Calc Pharmacy 70.3781; Globulin 2.8 g/dL (1.3-4.6); Glomerular Filtration Rate 85.5 mL/min (90-130); Glucose 234 mg/dL (65-115); Osmolality Calculated 289 mOsm/kg (285-295); Potassium 4.5 mmol/L (3.5-5.1); Sodium 136 mmol/L (136-145); Total Bilirubin 0.4 mg/dL (0.15-1.2); Total Protein 5.6 g/dL (6.6-8.7)
[2023-11-10 07:56] LABS: Carbon Dioxide 8 mmol/L (22-29)
[2023-11-10 08:45] LABS: Glucose Point of Care 243 mg/dL (70-110)
[2023-11-10] MEDS: gabapentin 100 mg Capsule PO ×3 (09:05→21:05)
[2023-11-10] MEDS: sucralfate 1 gm/10 mL Oral Liq UDC PO ×4 (09:05→21:05)
[2023-11-10] MEDS: atorvastatin 40 mg Tablet PO (09:05)
[2023-11-10] MEDS: insulin lispro 100 unit/1 mL SUBCUT ×4 (09:05→21:06)
--- NOTE | 2023-11-10 10:52 | PC.NURSE ---
Pt hair matted to his head. Pt requests a haircut. This RN cuts hair. Pt verbalizes that he is happy with haircut and feels much better.
[2023-11-10 11:45] LABS: Glucose Point of Care 172 mg/dL (70-110)
[2023-11-10] MEDS: sodium bicarbonate 650 mg Tablet PO ×3 (12:38→21:05)
--- NOTE | 2023-11-10 13:57 | P.PN_ITS ---
Subjective 2 Subjective: No acute events overnight. Sitting up comfortably in bed. Denies any nausea, ting, headache. Awake and alert and able to have complete conversation. Appreciate vitals to be stable. Remains on room air. Vitals/I&O/Wt Last Vital Signs Temp 97.7 F 11/10/23 12:00 Pulse 91 11/10/23 12:00 Resp 16 11/10/23 12:00 BP 93/56 11/10/23 12:00 Pulse Ox 93 11/10/23 12:00 O2 Del Method Room Air 11/10/23 04:02 O2 Flow Rate 6 11/06/23 17:30 11/09/23 11/10/23 11/10/23 22:59 06:59 14:59 Intake Total 592.5 / 1720.0 1000 / 2720.0 1400.833 / 1400.833 Output Total 2500 / 2500 Balance 592.5 / 1720.0 -1500 / 220.0 1400.833 / 1400.833 Weight last 48 hrs Weight 58.468 kg Weight 60.963 kg Weight 60.963 kg Physical Exam 2 Narrative: General: No acute distress, AO x 2-3, HEENT: PERRLA, pupils bilaterally equal and reactive Chest: Normal vesicular breath sounds, no added sounds, equal good air entry bilaterally CVS: S1-S2 regular, no murmurs, no tachycardia, no gallops, no rubs Abdomen: Soft, nontender, no organomegaly, bowel sounds present Neuro: No focal deficits, no facial deformity, AO x3, power 5/5 in all limbs Urinary Catheter Management: [place]: Cath Placed During This Visit: yes, but has since been removed by the nurse Reason for Continuing Indwelling Catheter: Decision to DC Catheter Urinary Catheter Date of Insertion: 11/06/23 Urinary Catheter Time of Insertion: 16:35 Date Urinary Catheter Removed: 11/08/23 Time Urinary Catheter Discontinued: 18:21 Data 11/10/23 06:57 11/10/23 06:57 Micro: Microbiology 11/09/23 09:30 Stool Lactoferrin - Final Stool 11/09/23 09:30 Occult Blood (FIT) - Final Stool Routine Collection A&P Assessment and plan (1) Altered mental status: Resolved. Most likely in setting of hypernatremia and electrolyte abnormalities. Appreciate urine drug screen, alcohol level, Tylenol and salicylate level, CT head. Frequent orientation. Seizure and fall precautions. Aspiration precautions. Qualifiers: Altered mental status type: disorientation Qualified Code(s): R41.0 - Disorientation, unspecified (2) DKA (diabetic ketoacidosis): Resolved. Anion gap closed to slightly elevated. Continue with insulin sliding scale at low-dose protocol. Add Lantus 10 units nightly. Patient still requiring D5W for hypernatremia. Will continue with D5W for now and change insulin as per requirements. Continue with cardiac carb consistent diet changed to mechanical soft. Monitor BMP in evening. Target potassium around 4. Check blood sugar ACHS. Qualifiers: Diabetes mellitus complication detail: without coma Diabetes mellitus type: type 2 Qualified Code(s): E11.10 - Type 2 diabetes mellitus with ketoacidosis without coma (3) Hypernatremia: Sodium slight improvement to 147. Continue with D5W at 125 cc/h with 20 mg of potassium. Repeat BMP in evening. Mentation improving. (4) Acute kidney injury: Resolved. Creatinine down to 0.8. Monitor BMP as above. Continue with strict input output charting. (5) Hypokalemia: Continues to have severe hypokalemia. Added potassium to fluids. Replete with 120 mEq additionally. Repeat potassium level in evening. (6) Metabolic acidosis: Most likely a combination of diabetic ketoacidosis and starvation ketosis. (7) Non-compliant behavior: (8) Esophagitis: Protonix 40 mg IV twice daily for now. Plan Restart other home medications including gabapentin. Plan for the day: Persistent anion gap metabolic acidosis though anion gap is improving. Patient's oral intake as well. Blood sugars well-controlled. Continue with current IV hydration at 75 cc/h. Add oral bicarb tablet 650 mg 3 times a day. Repeat BMP in evening. Stool for occult blood positive but hemoglobin has remained stable. Continue with Protonix twice daily and Carafate ACHS. Stool studies negative for C. difficile. Start on Imodium as needed. Physical therapy evaluation. Discharge plan: Patient would benefit from discharge to SNF but patient is not agreeable. Most likely discharge to home with home health. Awaiting physical therapy evaluation. Given recurrent admission with altered mental status at different hospitals, severe DKA with severe metabolic acidosis. Patient does not seem to have good understanding of his medications. Seems confused. Patient might need more help now to take care of his ADLs and medications going forward. Discussed in detail with the patient that he would benefit from SNF placement versus more involved care for his health going forward. He wants us to discuss with patient's son before making any arrangements. Tried calling Mr. Ly over the phone. Not able to get in touch left a message. Full code Carb consistent mechanical soft diet Protonix for PUD prophylaxis Heparin 5000 square hourly for DVT prophylaxis. Attestations 2 Medical Necessity Statement*: Requires further hospitalization for management of severe metabolic acidosis most likely in setting of starvation ketosis and patient was previously admitted here for DKA while safe discharge planning is sought Diagnoses Altered mental status R41.0 Altered mental status type: disorientation DKA (diabetic ketoacidosis) E11.10 Diabetes mellitus complication detail: without coma Diabetes mellitus type: type 2 Hypernatremia E87.0 Acute kidney injury N17.9 Hypokalemia E87.6 Metabolic acidosis E87.20 Non-compliant behavior R46.89 Esophagitis K20.90
[2023-11-10 15:42] LABS: Anion Gap 20.2 (5-19); Carbon Dioxide 11 mmol/L (22-29); Chloride 106 mmol/L (98-107); Glucose 210 mg/dL (65-115); Potassium 4.2 mmol/L (3.5-5.1); Sodium 133 mmol/L (136-145)
[2023-11-10 15:49] LABS: Blood Urea Nitrogen 12 mg/dL (8-23); Calcium 8.2 mg/dL (8.5-10.5); Creatinine Clr Calc Pharmacy 70.3781; Glomerular Filtration Rate 85.5 mL/min (90-130); Osmolality Calculated 285 mOsm/kg (285-295)
[2023-11-10 16:46] LABS: Glucose Point of Care 211 mg/dL (70-110)
[2023-11-10 20:22] LABS: Glucose Point of Care 148 mg/dL (70-110)
[2023-11-10] MEDS: trazodone 50 mg Tablet PO (21:05)
[2023-11-11] VITALS (9 sets, daily range): BP systolic 93–108; BP diastolic 54–67; PULSE 76–104; RESP 16–18; TEMP 36.5–37.1; O2SAT 96–99
[2023-11-11] MEDS: sodium chlor 0.45% +KCl 20 mEq 20 MEQ/1,000 ML BAG 75 MEQ IV (01:20)
[2023-11-11] MEDS: pantoprazole 40 mg SDV IVP ×2 (04:44→15:50)
[2023-11-11] MEDS: sucralfate 1 gm/10 mL Oral Liq UDC PO ×4 (06:03→21:15)
[2023-11-11 06:29] LABS: Glucose Point of Care 207 mg/dL (70-110)
[2023-11-11 06:53] LABS: Basophils # 0.1 10^3/uL (0.0-0.1); Basophils % 0.8 %; Eosinophils # 0.1 10^3/uL (0.0-0.8); Eosinophils % 0.9 %; Hematocrit 34.5 % (37-53); Lymphocytes % 7.7 %; Mean Corpuscular HGB Conc 32.2 g/dL (30-55); Mean Corpuscular Hemoglobin 27.7 pg (27-33); Mean Platelet Volume 9.9 fL (7.4-10.4); Monocytes # 1.7 10^3/uL (0.2-0.9); Monocytes % 13.4 %; Neutrophils # 9.56 10^3/uL (1.8-7.7); Neutrophils % 75.1 %; Nucleated Red Blood Cells % 0 %; Platelet Count 198 10^3/cmm (157-399); Red Blood Count 4.01 10^6/uL (3.85-5.65); Red Cell Distribution Width 14.6 % (12.1-15.1); White Blood Count 12.74 10^3/uL (3.29-11.43)
[2023-11-11 07:07] LABS: Alanine Aminotransferase 11 U/L (0-41); Albumin Level 2.5 g/dL (3.5-5.2); Alkaline Phosphatase 193 U/L (40-130); Anion Gap 26.4 (5-19); Aspartate Amino Transferase 7 U/L (0-40); Blood Urea Nitrogen 9 mg/dL (8-23); Calcium 8.3 mg/dL (8.5-10.5); Chloride 103 mmol/L (98-107); Creatinine Clr Calc Pharmacy 70.4672; Globulin 2.8 g/dL (1.3-4.6); Glomerular Filtration Rate 85.5 mL/min (90-130); Glucose 234 mg/dL (65-115); Osmolality Calculated 282 mOsm/kg (285-295); Potassium 4.4 mmol/L (3.5-5.1); Sodium 133 mmol/L (136-145); Total Bilirubin 0.3 mg/dL (0.15-1.2); Total Protein 5.3 g/dL (6.6-8.7)
[2023-11-11 07:28] LABS: Carbon Dioxide 8 mmol/L (22-29)
[2023-11-11] MEDS: insulin lispro 100 unit/1 mL SUBCUT ×4 (08:50→21:15)
[2023-11-11] MEDS: sodium bicarbonate 650 mg Tablet PO ×3 (08:51→21:15)
[2023-11-11] MEDS: atorvastatin 40 mg Tablet PO (08:51)
[2023-11-11] MEDS: gabapentin 100 mg Capsule PO ×3 (08:51→21:15)
[2023-11-11 10:58] LABS: Ketone (Acetest) Serum Positive (Negative)
[2023-11-11] MEDS: lactated ringers 1,000 ML 100 ML IV ×2 (11:03→21:13)
[2023-11-11 11:16] LABS: Glucose Point of Care 211 mg/dL (70-110)
[2023-11-11 14:44] LABS: Base Excess VBG -10.6 mmol/L (-3.0-3.0); Blood Gas Operator Identificat AMH; Blood Gas Sample Site Not specified; Blood Gas Sample Type Not specified; HCO3 VBG 14.2 mmol/L (24-28); Oxygen Device ROOM AIR; PCO2 VBG 27.6 mmHg (41-51); PO2 VBG 33.5 mmHg (25-40); Venous Blood Gas Hematocrit 34.5 % (42-52); pH VBG 7.32 (7.32-7.42)
[2023-11-11 15:16] LABS: Add Urine Microscopic? YES; Bilirubin Urine Neg (Negative); Blood Urine 2+ (Negative); Glucose Urine UA 4+ (Normal); Ketones Urine 3+ (Negative); Leukocyte Esterase Urine Negative (Negative); Nitrate Urine Negative (Negative); Protein Urine Trace (Negative); Urine Appearance Clear (CLEAR); Urine Color Yellow (Yellow); Urobilinogen Urine Neg (Negative); pH Urine 5 (5-7)
[2023-11-11 15:17] LABS: RBC Urine 0-4 /hpf (0-2); Squamous Epithelial Cell Urine 0-4 /hpf (0-5); WBC Urine 0-4 /hpf (0-5)
[2023-11-11 15:18] LABS: Amorphous Sediment Urine TRACE /hpf; Bacteria Urine 1+ /hpf; Hyaline Casts Urine 0-4 /lpf; Mucus Urine 1+ /hpf
[2023-11-11 15:19] LABS: Add Urine Culture? No
[2023-11-11 17:14] LABS: Glucose Point of Care 254 mg/dL (70-110)
[2023-11-11 20:34] LABS: Glucose Point of Care 220 mg/dL (70-110)
[2023-11-11] MEDS: trazodone 50 mg Tablet PO (21:15)
--- NOTE | 2023-11-11 23:04 | P.PN_ITS ---
Subjective 2 Subjective: He reports he is doing okay he has been feeling a bit nauseated. He denies pain or discomfort. He states he has been well alert and doing better in terms of his mental status compared to prior. Vitals/I&O/Wt Last Vital Signs Temp 98.3 F 11/11/23 19:48 Pulse 95 11/11/23 19:48 Resp 17 11/11/23 19:48 BP 106/67 11/11/23 19:48 Pulse Ox 98 11/11/23 19:48 O2 Del Method Room Air 11/11/23 19:48 O2 Flow Rate 6 11/06/23 17:30 11/11/23 11/11/23 11/12/23 14:59 22:59 06:59 Intake Total 1959 1600 / 3560 Balance 1959 1600 / 3560 Weight last 48 hrs Weight 58.542 kg Weight 58.468 kg Physical Exam 2 Const: COMMON NORMALS: patient oriented x3 and alert GENERAL APPEARANCE: c ooperative ORIENTATION/CONSCIOUSNESS: Yes awake HENMT: COMMON NORMALS: oropharynx normal Neck/C-Spine: COMMON NORMALS: no JVD Resp: COMMON NORMALS: normal respiratory effort and clear to auscultation bilaterally AUSCULTATION: clear to auscultation bilaterally Cardio: COMMON NORMALS: no JVD, regular rhythm, S1 normal heart sound present, S2 normal heart sound present and No murmurs present (Cardio) RHYTHM: regular rhythm HEART SOUNDS: S1 normal heart sound present and S2 normal heart sound present GI: COMMON NORMALS: Normal to inspection, nondistended, normoactive bowel sounds present, Soft to palpation and non-tender PALPATION: Yes Soft to palpation Extremity: COMMON NORMALS: no joint enlargement and no pedal edema Neuro: COMMON NORMALS: patient oriented x3 and moves all extremities S ENSORIUM/ORIENTATION: Yes alert Skin: COMMON NORMALS: no rashes or lesions noted GENERAL SKIN EXAM: no rashes or lesions noted Urinary Catheter Management: [place]: Cath Placed During This Visit: yes, but has since been removed by the nurse Reason for Continuing Indwelling Catheter: Decision to DC Catheter Urinary Catheter Date of Insertion: 11/06/23 Urinary Catheter Time of Insertion: 16:35 Date Urinary Catheter Removed: 11/08/23 Time Urinary Catheter Discontinued: 18:21 Data 11/11/23 06:20 11/11/23 06:20 A&P Assessment and plan (1) DKA (diabetic ketoacidosis): Reviewed vitals, CBC, CMP, requested serum ketones, VBG, UA, discussed with him return of ketoacidosis. Continue sliding scale, VBG with mild acidosis, pH 7.32, started IV hydration, we discussed consideration of insulin drip with his subcutaneous insulin, add insulin Lantus 10 units. Continue IVF. Continue sliding scale, CC diet. Reassess labs. Follow-up electrolytes. Discussed with him, low threshold to move to ICU in case of any worsening. Discussed with him regarding A1c back in August, discussed need for continued insulin therapy, will discontinue glipizide at discharge. Discussed with case management, casework manager also discussed with him postdischarge plans, he Hilleary. declines to consider going to [facility]. Resolved. Anion gap closed to slightly elevated. Continue with insulin sliding scale at low-dose protocol. Add Lantus 10 units nightly. Monitor for hypoglycemia with escalation of insulin. Patient still requiring D5W for hypernatremia. Will continue with D5W for now and change insulin as per requirements. Continue with cardiac carb consistent diet changed to mechanical soft. Monitor BMP in evening. Target potassium around 4. Check blood sugar ACHS. Qualifiers: Diabetes mellitus complication detail: without coma Diabetes mellitus type: type 2 Qualified Code(s): E11.10 - Type 2 diabetes mellitus with ketoacidosis without coma (2) Altered mental status: Resolved. Most likely in setting of hypernatremia and electrolyte abnormalities. Appreciate urine drug screen, alcohol level, Tylenol and salicylate level, CT head. Frequent orientation. Seizure and fall precautions. Aspiration precautions. Qualifiers: Altered mental status type: disorientation Qualified Code(s): R41.0 - Disorientation, unspecified (3) Hypernatremia: Reviewed sodium, hyponatremia is mild, 133. With some return of DKA. Repeat BMP in evening. Mentation improving. (4) Acute kidney injury: Resolved. Creatinine down to 0.8. Monitor BMP as above. Continue with strict input output charting. (5) Hypokalemia: Repeat potassium. Continues to have severe hypokalemia. Added potassium to fluids. Replete with 120 mEq additionally. Repeat potassium level in evening. (6) Metabolic acidosis: Most likely a combination of diabetic ketoacidosis and starvation ketosis. (7) Non-compliant behavior: (8) Esophagitis: Protonix 40 mg IV twice daily for now. Attestations 2 Medical Necessity Statement*: Continue admission for assessment management of return of DKA. Diagnoses DKA (diabetic ketoacidosis) E11.10 Diabetes mellitus complication detail: without coma Diabetes mellitus type: type 2 Altered mental status R41.0 Altered mental status type: disorientation Hypernatremia E87.0 Acute kidney injury N17.9 Hypokalemia E87.6 Metabolic acidosis E87.20 Non-compliant behavior R46.89 Esophagitis K20.90
[2023-11-12] VITALS (8 sets, daily range): BP systolic 89–118; BP diastolic 57–70; PULSE 90–105; RESP 16–19; TEMP 36.1–37.2; O2SAT 95–98
[2023-11-12] MEDS: pantoprazole 40 mg SDV IVP ×2 (05:36→18:02)
[2023-11-12] MEDS: sucralfate 1 gm/10 mL Oral Liq UDC PO ×4 (05:55→20:52)
[2023-11-12] MEDS: lactated ringers 1,000 ML 100 ML IV ×2 (05:55→15:50)
[2023-11-12 06:36] LABS: Glucose Point of Care 239 mg/dL (70-110)
[2023-11-12] MEDS: sodium bicarbonate 650 mg Tablet PO ×3 (08:40→20:49)
[2023-11-12] MEDS: gabapentin 100 mg Capsule PO ×3 (08:40→20:48)
[2023-11-12] MEDS: atorvastatin 40 mg Tablet PO (08:40)
[2023-11-12] MEDS: heparin 5,000 unit/mL INJ 1 mL 5000 UNIT SUBCUT ×2 (08:40→20:50)
[2023-11-12] MEDS: insulin lispro 100 unit/1 mL SUBCUT ×4 (08:41→20:50)
[2023-11-12] MEDS: ondansetron 2 mg/ML SDV 2 mL 4 MG IVP (08:58)
[2023-11-12 10:00] LABS: Basophils # 0.1 10^3/uL (0.0-0.1); Basophils % 0.6 %; Eosinophils # 0.1 10^3/uL (0.0-0.8); Eosinophils % 0.6 %; Lymphocytes # 0.9 10^3/uL (0.8-4.8); Lymphocytes % 8.8 %; Mean Corpuscular HGB Conc 33.1 g/dL (30-55); Mean Corpuscular Hemoglobin 27.8 pg (27-33); Mean Platelet Volume 10.5 fL (7.4-10.4); Monocytes # 1.8 10^3/uL (0.2-0.9); Monocytes % 17.4 %; Neutrophils # 7.32 10^3/uL (1.8-7.7); Neutrophils % 70.3 %; Nucleated Red Blood Cells % 0 %; Platelet Count 249 10^3/cmm (157-399); Red Blood Count 3.81 10^6/uL (3.85-5.65); Red Cell Distribution Width 14.7 % (12.1-15.1); White Blood Count 10.41 10^3/uL (3.29-11.43)
[2023-11-12 10:24] LABS: Alanine Aminotransferase 8 U/L (0-41); Albumin Level 2.5 g/dL (3.5-5.2); Alkaline Phosphatase 81 U/L (40-130); Anion Gap 25.1 (5-19); Aspartate Amino Transferase 6 U/L (0-40); Blood Urea Nitrogen 7 mg/dL (8-23); Calcium 8.5 mg/dL (8.5-10.5); Carbon Dioxide 11 mmol/L (22-29); Chloride 102 mmol/L (98-107); Globulin 2.7 g/dL (1.3-4.6); Glucose 243 mg/dL (65-115); Osmolality Calculated 284 mOsm/kg (285-295); Potassium 4.1 mmol/L (3.5-5.1); Sodium 134 mmol/L (136-145); Total Bilirubin 0.3 mg/dL (0.15-1.2); Total Protein 5.2 g/dL (6.6-8.7)
[2023-11-12 10:36] LABS: Glucose Point of Care 314 mg/dL (70-110)
[2023-11-12] MEDS: insulin glargine 100 units/1 mL 5 UNIT SUBCUT (15:46)
[2023-11-12] MEDS: acetaminophen 325 mg Tablet 650 MG PO (15:46)
[2023-11-12 17:23] LABS: Glucose Point of Care 271 mg/dL (70-110)
[2023-11-12 20:35] LABS: Glucose Point of Care 266 mg/dL (70-110)
[2023-11-12] MEDS: trazodone 50 mg Tablet PO (20:48)
[2023-11-12] MEDS: insulin glargine 100 units/1 mL 10 UNIT SUBCUT (20:52)
--- NOTE | 2023-11-12 22:28 | P.PN_ITS ---
Subjective 2 Subjective: He is still having nausea, overall doing somewhat better than yesterday. Not much appetite but will try to eat. Vitals/I&O/Wt Last Vital Signs Temp 98.2 F 11/12/23 19:52 Pulse 101 H 11/12/23 21:41 Resp 17 11/12/23 19:52 BP 95/61 11/12/23 19:52 Pulse Ox 97 11/12/23 19:52 O2 Del Method Room Air 11/12/23 19:52 O2 Flow Rate 6 11/06/23 17:30 11/12/23 11/12/23 11/12/23 06:59 14:59 22:59 Intake Total 1110 / 4670 480 / 480 985 / 1465 Balance 1110 / 4670 480 / 480 985 / 1465 Weight last 48 hrs Weight 61.83 kg Weight 61.83 kg Weight 58.542 kg Physical Exam 2 Const: COMMON NORMALS: patient oriented x3 and alert GENERAL APPEARANCE: c ooperative ORIENTATION/CONSCIOUSNESS: Yes awake HENMT: COMMON NORMALS: oropharynx normal Neck/C-Spine: COMMON NORMALS: no JVD Resp: COMMON NORMALS: normal respiratory effort and clear to auscultation bilaterally AUSCULTATION: clear to auscultation bilaterally Cardio: COMMON NORMALS: no JVD, regular rhythm, S1 normal heart sound present, S2 normal heart sound present and No murmurs present (Cardio) RHYTHM: regular rhythm HEART SOUNDS: S1 normal heart sound present and S2 normal heart sound present GI: COMMON NORMALS: Normal to inspection, nondistended, normoactive bowel sounds present, Soft to palpation and non-tender PALPATION: Yes Soft to palpation Extremity: COMMON NORMALS: no joint enlargement and no pedal edema Neuro: COMMON NORMALS: patient oriented x3 and moves all extremities S ENSORIUM/ORIENTATION: Yes alert Skin: COMMON NORMALS: no rashes or lesions noted GENERAL SKIN EXAM: no rashes or lesions noted Urinary Catheter Management: [place]: Cath Placed During This Visit: yes, but has since been removed by the nurse Reason for Continuing Indwelling Catheter: Decision to DC Catheter Urinary Catheter Date of Insertion: 11/06/23 Urinary Catheter Time of Insertion: 16:35 Date Urinary Catheter Removed: 11/08/23 Time Urinary Catheter Discontinued: 18:21 Data 11/12/23 06:21 11/12/23 06:21 Micro: Microbiology 11/09/23 09:30 E. coli Shiga-like Toxin (PCR) - Final Stool Campylobacter (PCR) - Final A&P Assessment and plan (1) DKA (diabetic ketoacidosis): Reviewed vitals, CBC, CMP, anion gap with improvement down to 25.1, bicarb with improvement up to 11. Still open anion gap, metabolic acidosis, DKA. Discussed with him additional long-acting insulin 5 units today. Continue scheduled Lantus. Monitor for risk of hypoglycemia. Continue IV fluid, monitor for risk of fluid overload. Reassess chemistry. Potassium is okay. Check magnesium. Cussed with rehabilitation caseworker, nursing. Discussed with him regarding A1c back in August, discussed need for continued insulin therapy, will discontinue glipizide at discharge. Discussed with case management, rehabilitation caseworker also discussed with him postdischarge plans, he Hilleary. declines to consider going to senior living. Resolved. Anion gap closed to slightly elevated. Continue with insulin sliding scale at low-dose protocol. Add Lantus 10 units nightly. Monitor for hypoglycemia with escalation of insulin. Patient still requiring D5W for hypernatremia. Will continue with D5W for now and change insulin as per requirements. Continue with cardiac carb consistent diet changed to mechanical soft. Monitor BMP in evening. Target potassium around 4. Check blood sugar ACHS. Qualifiers: Diabetes mellitus complication detail: without coma Diabetes mellitus type: type 2 Qualified Code(s): E11.10 - Type 2 diabetes mellitus with ketoacidosis without coma (2) Altered mental status: Resolved. Most likely in setting of hypernatremia and electrolyte abnormalities. Appreciate urine drug screen, alcohol level, Tylenol and salicylate level, CT head. Frequent orientation. Seizure and fall precautions. Aspiration precautions. Qualifiers: Altered mental status type: disorientation Qualified Code(s): R41.0 - Disorientation, unspecified (3) Hypernatremia: Reviewed sodium, improving to 134. With some return of DKA. Repeat BMP in evening. Mentation improving. (4) Acute kidney injury: Resolved. Creatinine down to 0.8. Monitor BMP as above. Continue with strict input output charting. (5) Hypokalemia: Potassium replaced. Check magnesium. Follow-up chemistry. Continues to have severe hypokalemia. Added potassium to fluids. Replete with 120 mEq additionally. Repeat potassium level in evening. (6) Metabolic acidosis: Most likely a combination of diabetic ketoacidosis and starvation ketosis. (7) Non-compliant behavior: (8) Esophagitis: Protonix 40 mg IV twice daily for now. Attestations 2 Medical Necessity Statement*: Continue admission for assessment management of recurrence of milder DKA Diagnoses DKA (diabetic ketoacidosis) E11.10 Diabetes mellitus complication detail: without coma Diabetes mellitus type: type 2 Altered mental status R41.0 Altered mental status type: disorientation Hypernatremia E87.0 Acute kidney injury N17.9 Hypokalemia E87.6 Metabolic acidosis E87.20 Non-compliant behavior R46.89 Esophagitis K20.90
[2023-11-13] MEDS: lactated ringers 1,000 ML 100 ML IV (01:22)
[2023-11-13 04:00] VITALS: BP 104/64; PULSE 102; RESP 18; TEMP 37.4; O2SAT 96
[2023-11-13 05:15] VITALS: PULSE 105
[2023-11-13 06:07] LABS: Basophils # 0.1 10^3/uL (0.0-0.1); Basophils % 0.5 %; Eosinophils # 0.1 10^3/uL (0.0-0.8); Eosinophils % 0.7 %; Hematocrit 28.2 % (37-53); Lymphocytes # 0.9 10^3/uL (0.8-4.8); Lymphocytes % 8.6 %; Mean Corpuscular HGB Conc 34.4 g/dL (30-55); Mean Corpuscular Volume 81.3 fl (82-101); Mean Platelet Volume 9.2 fL (7.4-10.4); Monocytes # 1.6 10^3/uL (0.2-0.9); Monocytes % 15.4 %; Neutrophils # 7.65 10^3/uL (1.8-7.7); Neutrophils % 73.5 %; Nucleated Red Blood Cells % 0 %; Platelet Count 237 10^3/cmm (157-399); Red Blood Count 3.47 10^6/uL (3.85-5.65); Red Cell Distribution Width 14.1 % (12.1-15.1); White Blood Count 10.39 10^3/uL (3.29-11.43)
[2023-11-13] MEDS: pantoprazole 40 mg SDV IVP (06:10)
[2023-11-13] MEDS: sucralfate 1 gm/10 mL Oral Liq UDC PO ×2 (06:10→11:16)
[2023-11-13 06:20] LABS: Glucose Point of Care 138 mg/dL (70-110)
[2023-11-13 06:31] LABS: Alanine Aminotransferase 8 U/L (0-41); Albumin Level 2.2 g/dL (3.5-5.2); Alkaline Phosphatase 101 U/L (40-130); Anion Gap 13.2 (5-19); Aspartate Amino Transferase 12 U/L (0-40); Blood Urea Nitrogen 5 mg/dL (8-23); Carbon Dioxide 21 mmol/L (22-29); Chloride 103 mmol/L (98-107); Creatinine Clr Calc Pharmacy 121.8649; Globulin 2.8 g/dL (1.3-4.6); Glomerular Filtration Rate 136.5 mL/min (90-130); Glucose 150 mg/dL (65-115); Osmolality Calculated 278 mOsm/kg (285-295); Potassium 3.2 mmol/L (3.5-5.1); Sodium 134 mmol/L (136-145); Total Bilirubin 0.3 mg/dL (0.15-1.2)
[2023-11-13 06:43] LABS: Calcium 8.1 mg/dL (8.5-10.5)
[2023-11-13 06:46] LABS: Magnesium 1.1 mg/dL (1.7-2.3)
[2023-11-13 07:51] VITALS: BP 103/62; PULSE 100; RESP 18; TEMP 36.7; O2SAT 96
[2023-11-13] MEDS: gabapentin 100 mg Capsule PO (08:06)
[2023-11-13] MEDS: sodium bicarbonate 650 mg Tablet PO (08:06)
[2023-11-13] MEDS: heparin 5,000 unit/mL INJ 1 mL 5000 UNIT SUBCUT (08:06)
[2023-11-13] MEDS: atorvastatin 40 mg Tablet PO (08:06)
[2023-11-13] MEDS: magnesium sulfate premix 2 GM/50 ML PIGGYBACK IV (11:17)
[2023-11-13 11:42] LABS: Glucose Point of Care 241 mg/dL (70-110)
[2023-11-13 12:18] VITALS: BP 109/52; PULSE 97; RESP 18; TEMP 36.7; O2SAT 97
--- NOTE | 2023-11-13 12:27 | PM.DCS ---
Discharge Providers Date of Admission: 11/06/23 16:57 Date of Discharge: November 13, 2023 Attending Provider at Admission: Gautam Russell MD Attending Provider at Discharge: Kofi Chacon Primary Care Provider: MIRI Resendez Diagnoses at Discharge Discharge Diagnosis (1) DKA (diabetic ketoacidosis): Status: Acute Qualifiers: Diabetes mellitus complication detail: without coma Diabetes mellitus type: type 2 Qualified Code(s): E11.10 - Type 2 diabetes mellitus with ketoacidosis without coma (2) Altered mental status: Status: Acute Qualifiers: Altered mental status type: disorientation Qualified Code(s): R41.0 - Disorientation, unspecified (3) Hypernatremia: Status: Acute (4) Acute kidney injury: Status: Acute (5) Hypokalemia: Status: Acute (6) Metabolic acidosis: Status: Acute (7) Non-compliant behavior: Status: Acute (8) Esophagitis: Status: Acute Reason for Visit Reason for Visit: [facility] Hospital Course Hospital Course Very pleasant 63-year-old gentleman with poorly controlled diabetes, last A1c of 12.5, was admitted with altered mental status, DKA with elevated anion gap, bicarb of 4, was treated with insulin drip in ICU, with resolution of DKA initially, however, recurrence of DKA subsequently, although milder. Long-acting insulin was added and discussed with him continuation of insulin after discharge given A1c level, with discontinuation of glipizide to mitigate risk of hypoglycemia. With additional IV fluids, subcutaneous insulin, DKA resolved. He is feeling better, appetite is improving. Still having some nausea but tolerating oral intake. Overall feels much better. Has remained lucid. Electrolytes including potassium magnesium replaced. With severe hypomagnesemia is prescribed magnesium supplement at discharge. We discussed insulin therapy, blood glucose targets as well as avoidance and action plan in case of hypoglycemia. He knows to seek medical attention in case of poorly controlled glucose, need for further insulin adjustment, otherwise knows to seek medical attention immediately in case of any symptomatic or not improving hypoglycemia. Various options for discharge planning were discussed with him including consideration of discharge to jail tomorrow, he is firm that he would not want to go to jail, discharging home instead. He has been giving himself Trulicity and states has not had any trouble with that. He knows to rotate sites of injection. Was given education for insulin injection. Please follow-up his diabetes control, reassess electrolytes and kidney function. I called his son to further revisit his father's conditions with him but couldn't reach him. He additionally continues on PPI with history of PUD, please reassess. He was counseled to avoid any alcohol or NSAIDs. Please revisit with him regarding smoking cessation. Physical Exam Narrative: Sitting up in a chair, pleasant, conversant, in good spirits. Overall feels much better. Feels ready to return home. Const: COMMON NORMALS: patient oriented x3 and alert GENERAL APPEARANCE: cooperative ORIENTATION/CONSCIOUSNESS: Yes awake HENMT: COMMON NORMALS: oropharynx normal Neck/C-Spine: COMMON NORMALS: no JVD Resp: COMMON NORMALS: normal respiratory effort and clear to auscultation bilaterally AUSCULTATION: clear to auscultation bilaterally Cardio: COMMON NORMALS: no JVD, regular rhythm, S1 normal heart sound present, S2 normal heart sound present and No murmurs present (Cardio) RHYTHM: regular rhythm HEART SOUNDS: S1 normal heart sound present and S2 normal heart sound present GI: COMMON NORMALS: Normal to inspection, nondistended, normoactive bowel sounds present, Soft to palpation and non-tender PALPATION: Yes Soft to palpation Extremity: COMMON NORMALS: no joint enlargement and no pedal edema Neuro: COMMON NORMALS: patient oriented x3 and moves all extremities SENSORIUM/ORIENTATION: Yes alert Skin: COMMON NORMALS: no rashes or lesions noted GENERAL SKIN EXAM: no rashes or lesions noted Urinary Catheter Management: [place]: Cath Placed During This Visit: yes, but has since been removed by the nurse Reason for Continuing Indwelling Catheter: Decision to DC Catheter Urinary Catheter Date of Insertion: 11/06/23 Urinary Catheter Time of Insertion: 16:35 Date Urinary Catheter Removed: 11/08/23 Time Urinary Catheter Discontinued: 18:21 Discharge Data Studies Completed and Pending Completed Studies During Hospitalization Category Date Time Status CT head wo con* [id number] Routine Cat Scan 11/06/23 17:16 Completed CXRP [XR chest 1V portable [id number]] Routine Exams 11/06/23 17:29 Completed XR chest 1V portable [id number] Stat Exams 11/06/23 14:12 Completed Pending at discharge Category Date Time Status Complete Blood Count w/Auto AM LABS Lab 11/14/23 04:00 Ordered Comprehensive Metabolic Panel AM LABS Lab 11/14/23 04:00 Ordered OVA and Parasites, Conc and PE Routine Lab 11/09/23 09:30 Results Salmonella / Shigella / Campy Routine Lab 11/09/23 09:30 Results Radiology Impressions Head CT 11/06/23 17:16 IMPRESSION: No large territorial infarct or intracranial bleed. Chest X-Ray 11/06/23 17:29 IMPRESSION: 1. Right IJ central venous catheter terminates at the SVC. 2. No acute cardiopulmonary findings. Laboratory Results WBC 10.39 10^3/uL (3.29-11.43) 11/13/23 05:51 RBC 3.47 10^6/uL (3.85-5.65) L 11/13/23 05:51 Hgb 9.70 g/dL (11.27-16.99) L 11/13/23 05:51 Hct 28.2 % (37-53) L 11/13/23 05:51 MCV 81.3 fl (82-101) L 11/13/23 05:51 MCH 28.0 pg (27-33) 11/13/23 05:51 MCHC 34.4 g/dL (30-55) 11/13/23 05:51 RDW 14.1 % (12.1-15.1) 11/13/23 05:51 Plt Count 237 10^3/cmm (157-399) 11/13/23 05:51 MPV 9.2 fL (7.4-10.4) 11/13/23 05:51 Neut % (Auto) 73.5 % 11/13/23 05:51 Lymph % (Auto) 8.6 % 11/13/23 05:51 [place] % (Auto) 15.4 % 11/13/23 05:51 Eos % (Auto) 0.7 % 11/13/23 05:51 Baso % (Auto) 0.5 % 11/13/23 05:51 Neut # (Auto) 7.65 10^3/uL (1.8-7.7) 11/13/23 05:51 Lymph # (Auto) 0.9 10^3/uL (0.8-4.8) 11/13/23 05:51 [place] # (Auto) 1.6 10^3/uL (0.2-0.9) H 11/13/23 05:51 Eos # (Auto) 0.1 10^3/uL (0.0-0.8) 11/13/23 05:51 Baso # (Auto) 0.1 10^3/uL (0.0-0.1) 11/13/23 05:51 Nucleated RBC % (auto) 0 % 11/13/23 05:51 Nucleated RBCs # 0.0 /100WBC 11/13/23 05:51 Specimen Type Not specified 11/11/23 14:38 Sample Site Not specified 11/11/23 14:38 ABG pH 7.37 (7.35-7.45) 11/07/23 04:00 ABG pCO2 26.2 mmHg (35-45) L 11/07/23 04:00 ABG pO2 93.2 mmHg (80.0-100.0) 11/07/23 04:00 ABG PO2/FiO2 Ratio 0 11/07/23 04:00 ABG HCO3 14.9 mmol/L (22-26) L 11/07/23 04:00 ABG O2 Saturation 99.5 11/07/23 04:00 ABG Base Excess -9.0 mmol/L (-2.0-2.0) L 11/07/23 04:00 Ruddy Test N/a 11/11/23 14:38 VBG pH 7.32 (7.32-7.42) 11/11/23 14:38 VBG pCO2 27.6 mmHg (41-51) L 11/11/23 14:38 VBG pO2 33.5 mmHg (25-40) 11/11/23 14:38 VBG HCO3 14.2 mmol/L (24-28) L 11/11/23 14:38 VBG Base Excess -10.6 mmol/L (-3.0-3.0) L 11/11/23 14:38 VBG Hematocrit 34.5 % (42-52) L 11/11/23 14:38 A-a O2 Gradient 2.8 mmHg (5-10) L 11/07/23 04:00 Hematocrit 33.4 % (42-52) L 11/07/23 04:00 Hgb O2 Saturation 97.2 % (95-100) 11/07/23 04:00 Carboxyhemoglobin 1.5 %THgb (0.4-20.1) 11/07/23 04:00 Methemoglobin 0.9 % (0.4-1.5) 11/07/23 04:00 Total Hemoglobin 10.9 g/dL (14-18) L 11/07/23 04:00 Sodium 152.0 mmol/L (131-143) H 11/07/23 04:00 Potassium 3.2 mmol/L (3.5-5.0) L 11/07/23 04:00 Glucose 110.0 mg/dL (70-115) 11/07/23 04:00 Ionized Calcium 1.2 mmol/L (1.1-1.4) 11/07/23 04:00 O2 Delivery Device Room air 11/11/23 14:38 FiO2 21.0 % 11/11/23 14:38 Hydrogen Braze Furnace Operator ID Amh 11/11/23 14:38 Sodium 134 mmol/L (136-145) L 11/13/23 05:51 Potassium 3.2 mmol/L (3.5-5.1) L 11/13/23 05:51 Chloride 103 mmol/L (98-107) 11/13/23 05:51 Carbon Dioxide 21 mmol/L (22-29) L 11/13/23 05:51 Anion Gap 13.2 (5-19) 11/13/23 05:51 BUN 5 mg/dL (8-23) L 11/13/23 05:51 Creatinine 0.6 mg/dL (0.7-1.2) L 11/13/23 05:51 GFR Calculation 136.5 mL/min (90-130) H 11/13/23 05:51 Glucose 150 mg/dL (65-115) H 11/13/23 05:51 POC Glucose 241 mg/dL (70-110) H 11/13/23 11:36 Calculated Osmolality 278 mOsm/kg (285-295) L 11/13/23 05:51 Lactic Acid 0.8 mmol/L (0.5-2.2) 11/06/23 14:33 Calcium 8.1 mg/dL (8.5-10.5) L 11/13/23 05:51 Phosphorus 1.4 mg/dL (2.5-4.5) L 11/07/23 22:33 Magnesium 1.1 mg/dL (1.7-2.3) L 11/13/23 05:51 Iron 83 ug/dL (59-158) 11/06/23 16:12 TIBC 161 mcg/dl 11/06/23 16:12 % Saturation 51.5 % (20-50) H 11/06/23 16:12 Unsat Iron Binding 78 ug/dL (112-347) L 11/06/23 16:12 Total Bilirubin 0.3 mg/dL (0.15-1.2) 11/13/23 05:51 AST 12 U/L (0-40) 11/13/23 05:51 ALT 8 U/L (0-41) 11/13/23 05:51 Alkaline Phosphatase 101 U/L (40-130) 11/13/23 05:51 Troponin T Baseline 45 ng/L (0-15) H 11/06/23 14:33 Troponin T 120 Minute 49.82 ng/L (0-15) H 11/06/23 16:12 Delta Troponin T 4.82 ABS# (0-10) 11/06/23 16:12 Troponin T Hi Sens 6Hr 41.38 ng/L (0-15) H 11/06/23 20:18 Troponin T Hi Sens 6Hr Delta -3.62 ng/L (0-12) L 11/06/23 20:18 C-Reactive Protein 67.1 mg/L (0.0-4.9) H 11/06/23 14:33 Total Protein 5.0 g/dL (6.6-8.7) L 11/13/23 05:51 Albumin 2.2 g/dL (3.5-5.2) L 11/13/23 05:51 Globulin 2.8 g/dL (1.3-4.6) 11/13/23 05:51 Triglycerides 94 mg/dL (0-150) 11/07/23 04:30 Cholesterol 75 mg/dL (0-200) 11/07/23 04:30 LDL Cholesterol, Calc 15 mg/dL (50-129) L 11/07/23 04:30 HDL Cholesterol 41 mg/dL (60-100) L 11/07/23 04:30 LDL/HDL Ratio 0.37 RATIO (0.00-3.22) 11/07/23 04:30 Cholesterol/HDL Ratio 1.83 mg/dL (1.0-5.00) 11/07/23 04:30 Vitamin B12 1821 pg/mL (232-1245) H 11/06/23 16:12 Folate 11.8 ng/mL (4.5-32.2) 11/07/23 04:30 Procalcitonin 0.42 ng/mL (0-0.5) 11/06/23 14:33 TSH 0.36 uIU/mL (0.27-4.20) 11/06/23 16:12 Urine Color Yellow (Yellow) 11/11/23 14:40 Urine Appearance Clear (CLEAR) 11/11/23 14:40 Urine pH 5 (5-7) 11/11/23 14:40 Ur Specific [place] 1.020 (1.005-1.030) 11/11/23 14:40 Urine Protein Trace (Negative) 11/11/23 14:40 Urine Glucose (UA) 4+ (Normal) H 11/11/23 14:40 Urine Ketones 3+ (Negative) H 11/11/23 14:40 Urine Blood 2+ (Negative) H 11/11/23 14:40 Urine Nitrate Negative (Negative) 11/11/23 14:40 Urine Bilirubin Neg (Negative) 11/11/23 14:40 Urine Urobilinogen Neg mg/dL (Negative) 11/11/23 14:40 Ur Leukocyte Esterase Negative (Negative) 11/11/23 14:40 Urine RBC 0-4 /hpf (0-2) H 11/11/23 14:40 Urine WBC 0-4 /hpf (0-5) H 11/11/23 14:40 Ur Squamous Epith Cells 0-4 /hpf (0-5) H 11/11/23 14:40 Amorphous Sediment Trace /hpf 11/11/23 14:40 Urine Bacteria 1+ /hpf (NONE) H 11/11/23 14:40 Hyaline Casts 0-4 /lpf H 11/11/23 14:40 Fine Granular Casts 0-4 /lpf H 11/06/23 18:40 Coarse Granular Casts 5-10 /lpf H 11/11/23 14:40 Urine Mucus 1+ /hpf 11/11/23 14:40 Urine Yeast Trace /hpf 11/11/23 14:40 Salicylates 5.3 mg/dL (3-10) 11/06/23 16:12 Urine Opiates Screen Negative ng/mL (Negative) 11/06/23 18:40 Acetaminophen < 5.0 ug/mL (10-30) L 11/06/23 16:12 Ur Barbiturates Screen Negative ng/mL (Negative) 11/06/23 18:40 Ur Phencyclidine Scrn Negative ng/mL (Negative) 11/06/23 18:40 Ur Amphetamines Screen Negative ng/mL (Negative) 11/06/23 18:40 U Benzodiazepines Scrn Negative ng/mL (Negative) 11/06/23 18:40 Urine Cocaine Screen Negative ng/mL (Negative) 11/06/23 18:40 U Marijuana (THC) Screen Positive ng/mL (Negative) H 11/06/23 18:40 Ethyl Alcohol < 10 mg/dL (0-10) 11/06/23 16:12 Serum Ketones Positive (Negative) H 11/11/23 06:20 C. difficile (PCR) Negative (Negative) 11/09/23 09:30 Vitals Last Vital Signs Temp 98.0 F 11/13/23 12:18 Pulse 97 11/13/23 12:18 Resp 18 11/13/23 12:18 BP 109/52 11/13/23 12:18 Pulse Ox 97 11/13/23 12:18 O2 Del Method Room Air 11/13/23 12:18 O2 Flow Rate 6 11/06/23 17:30 Discharge Plan Discharge Patient Disposition: Home Health Service Condition: Stable Prescriptions: New Lantus U-100 Insulin 100 unit/mL Solution 15 unit SUBCUT BEDTIME Qty: 10 0RF magnesium oxide 400 mg (241.3 mg magnesium) tablet 400 mg PO DAILY Qty: 90 0RF Continued (DME) lancets Misc See Rx Instructions .Route Qty: 100 0RF Rx Instructions: use to check blood sugar one time daily (DME) blood-glucose meter Kit See Rx Instructions .Route Qty: 1 0RF Rx Instructions: use to check blood sugar one time daily rosuvastatin 10 mg tablet 10 mg PO DAILY 90 Days Qty: 90 0RF (DME) blood sugar diagnostic Strip See Rx Instructions .Route Qty: 100 0RF Rx Instructions: use to check blood sugars one time daily trazodone 50 mg tablet 50 mg PO BEDTIME omeprazole 20 mg capsule,delayed release(DR/EC) 20 mg PO DAILY Rx Instructions: 30 MINUTES BEFORE ANY OTHER MEDICATIONS gabapentin 100 mg capsule 100 mg PO TID Jardiance 25 mg tablet 25 mg PO DAILY Trulicity 0.75 mg/0.5 mL pen injector 0.75 mg SUBCUT Q7D Rx Instructions: a1c 12.6%, Has been on metformin, jardiance, januvia, glipizide. Discontinued glipizide 5 mg tablet 5 mg PO BID Discharge Orders: Discharge Order (Routine); Ordered 11/13/23 Ordered By: Kofi Chacon Other Ambulatory Orders: DME: Walker (Order) Location: None Selected Ordered By: Kofi Chacon Referrals: Geremias BROWN [Other] Giovany Willingham FNP [Primary Care Provider] - 11/19/23 2:00 pm () Discharge Diet: As Directed and Diabetic Patient Instructions: Diabetes and Diet, Insulin Glargine (By injection), Hypoglycemia in a Person with Diabetes (GEN), How to Give an Insulin Injection (GEN), Altered Mental Status (ED), Diabetes and Exercise (GEN), Opioid Safety Activity Restrictions/Additional Instructions: Continue insulin regimen at home. Stop glipizide. Continue Trulicity. Measure blood glucose 3 times daily, save values to bring to her appointment. Maintain consistent carbohydrate diet. If her blood glucose is less than 100, do not administer insulin especially if you are not going to eat. If her blood glucose is less than 80, take sugary snacks, recheck in 15-20 minutes, if it is still low, take additional snacks and seek medical attention. Low blood sugar can be dangerous and can lead to serious complications including strokes. Avoid low blood sugars at all close. Try to target blood glucose 100-150. Have your primary doctor follow-up your knee function and electrolytes at next visit. Follow-up with your primary doctor regarding peptic ulcer disease and esophagitis. Please stop smoking, continued smoking will increase your risk of heart attack, stroke, lung disease and various cancers including stomach cancer. Discuss with your primary doctor regarding endoscopic evaluation inside your stomach if you have not had 1 to make sure there are no concerning findings to suggest any abnormal growths. Avoid any alcohol if possible as it makes peptic ulcer disease and esophagitis worse. Avoid any NSAIDs like ibuprofen, Aleve, etc. Continue dysphagia diet, minced and moist. Have your primary doctor follow-up your potassium and magnesium levels. In case of any worsening or new concerning symptoms, seek medical attention. Discharge Attestations Time Spent in Discharge Care*: greater than 30 min Quality Metrics Clinical Quality Measures [ No reported AMI, CVA or VTE this stay] Coding Level of Care Code 33255 Total time (in minutes) for Discharge: 50 Diagnoses DKA (diabetic ketoacidosis) E11.10 Diabetes mellitus complication detail: without coma Diabetes mellitus type: type 2 Altered mental status R41.0 Altered mental status type: disorientation Hypernatremia E87.0 Acute kidney injury N17.9 Hypokalemia E87.6 Metabolic acidosis E87.20 Non-compliant behavior R46.89 Esophagitis K20.90
[2023-11-13] MEDS: insulin lispro 100 unit/1 mL SUBCUT (12:43)
[2023-11-13 13:30] VITALS: BP 109/52; PULSE 97; RESP 18; TEMP 36.7; O2SAT 97
== END 2023-11-13 13:20 | disposition home health service (06) | DRG 638 ==
LOC: ER 15:57 → ICU 16:57 → MEDSURG 11-08 21:05
PROVIDERS: Emergency Medicine; Internal Medicine; Admitting Provider Student in an Organized Health Care Education/Training Program; Emergency Provider Emergency Medicine; PCP Registered Nurse; Visit Provider Internal Medicine
DX: E11.10 Type 2 diabetes mellitus with ketoacidosis without coma (principal); E87.0 Hyperosmolality and hypernatremia; N17.9 Acute kidney failure, unspecified; E78.5 Hyperlipidemia, unspecified; K21.9 Gastro-esophageal reflux disease without esophagitis; K44.9 Diaphragmatic hernia without obstruction or gangrene; F17.210 Nicotine dependence, cigarettes, uncomplicated; E86.0 Dehydration; E87.6 Hypokalemia; K20.90 Esophagitis, unspecified without bleeding; Z91.148 Patient's other noncompliance with medication regimen for other reason; Z79.84 Long term (current) use of oral hypoglycemic drugs; Z79.85 Long-term (current) use of injectable non-insulin antidiabetic drugs
CPT/HCPCS: 36415; 36416; 36556; 36592; 36600; 51702; 70450; 71045; 80048; 80051; 80053; 80061; 80306; 80307; 81001; 82009; 82274; 82330; 82607; 82746; 82803; 82805; 82962; 83540; 83550; 83605; 83630; 83735; 84100; 84145; 84443; 84484; 85025; 86140; 86403; 87045; 87177; 87209; 87427; 87449; 87493; 92523; 92610; 93005; 94664; 96365; 96366; 96367; 96372; 96375; 97116; 97162; 97530; 99152; 99285; 99291; 99292; C1751; C9113; J1630; J1644; J1815; J2405; J3475; J3480; J3490; J7030; J7070; J7120

== ENCOUNTER 2023-11-13 21:57 | Emergency (ER) | payer MEDICAID, SELFPAY ==
[2023-11-13 22:01] VITALS: BP 105/55; PULSE 73; RESP 18; TEMP 37.4; O2SAT 96
[2023-11-13 22:09] LABS: Glucose Point of Care 317 mg/dL (70-110)
--- NOTE | 2023-11-13 22:19 | W.ED.GENADLT ---
HPI - General Adult General: Chief complaint: General Medical Stated complaint: Pharmacy Closed and Needs Insulan Time Seen by Provider: 11/13/23 22:10 Source: patient Mode of arrival: ambulatory Limitations: no limitations History of Present Illness: Patient is a 63-year-old male with a longstanding history of diabetes here requesting a shot of his Lantus that he was recently placed on by his primary care provider. Patient was seen by primary care earlier today. He states they made adjustments to his diabetic medications including stopping glipizide and continuing his Trulicity. They started him on Lantus 15 units. Patient states that he went to greens picker this medication at the pharmacy they had already closed for the evening thus prompting him to come to the emergency department. Patient states his blood sugars are chronically uncontrolled and often times in the 900s. He has no physical complaints at this time. Blood glucose obtained in triage was 317. Relieving factors: none Exacerbating factors: none Associated symptoms: Reports no associated symptoms Treatments prior to arrival: none Review of Systems General: Reports: 10 or more systems reviewed and unremarkable except in HPI and below PFSH ED PFSH: Medical History Gastritis Hiatal hernia Diabetes mellitus Family History Other Cancer Diabetes Heart disease Social History Smoking and tobacco/nicotine status: current every day tobacco/nicotine user Alcohol intake: current Alcohol intake frequency: 0-2 Drinks per Day Alcohol type: beer Substance/Drug Use: never Adopted: No Caregiver/support person: No Lives independently: Yes service: No Current occupational status: unemployed Sexually active: Yes Do you think of yourself as: Straight/Heterosexual Current gender identity: Male Physical Exam Const: COMMON NORMALS: no acute distress, average body habitus, patient oriented x3, no limitations, healthy appearing, alert and well nourished Resp: COMMON NORMALS: normal respiratory effort and clear to auscultation bilaterally AUSCULTATION: clear to auscultation bilaterally Cardio: COMMON NORMALS: regular rate and regular rhythm RATE: regular rate RHYTHM: regular rhythm Neuro: COMMON NORMALS: patient oriented x3 SENSORIUM/ORIENTATION: Yes alert Course Vital Signs: Vital signs: Vital Signs Temperature 99.3 F 11/13/23 22:01 Pulse Rate 73 11/13/23 22:01 Respiratory Rate 18 11/13/23 22:01 Blood Pressure 105/55 11/13/23 22:01 Pulse Oximetry 96 11/13/23 22:01 Oxygen Delivery Me thod Room Air 11/13/23 22:01 MDM - General Adult Medical Decision Making Patient has no physical complaints at this time. POC glucose upon arrival was 317. Patient was just prescribed the Lantus earlier today and he has not started this medication. Explained to him how he is probably fine to wait to fill this medication in the morning but he is adamant that he would like to receive his 15 units this evening thus this was ordered for him. Medical Records I reviewed the patient's medical records. Lab Data I reviewed the patient's lab results. Laboratory Results POC Glucose 317 mg/dL (70-110) H 11/13/23 22:06 No radiology studies performed this visit Discharge Plan Discharge Patient Disposition: Home Clinical Impression: Chronic hyperglycemia Condition: Stable Prescriptions: No Action (DME) lancets Misc See Rx Instructions .Route Qty: 100 0RF Rx Instructions: use to check blood sugar one time daily (DME) blood-glucose meter Kit See Rx Instructions .Route Qty: 1 0RF Rx Instructions: use to check blood sugar one time daily rosuvastatin 10 mg tablet 10 mg PO DAILY 90 Days Qty: 90 0RF (DME) blood sugar diagnostic Strip See Rx Instructions .Route Qty: 100 0RF Rx Instructions: use to check blood sugars one time daily trazodone 50 mg tablet 50 mg PO BEDTIME omeprazole 20 mg capsule,delayed release(DR/EC) 20 mg PO DAILY Rx Instructions: 30 MINUTES BEFORE ANY OTHER MEDICATIONS gabapentin 100 mg capsule 100 mg PO TID Jardiance 25 mg tablet 25 mg PO DAILY Trulicity 0.75 mg/0.5 mL pen injector 0.75 mg SUBCUT Q7D Rx Instructions: a1c 12.6%, Has been on metformin, jardiance, januvia, glipizide. Lantus U-100 Insulin 100 unit/mL Solution 15 unit SUBCUT BEDTIME Qty: 10 0RF magnesium oxide 400 mg (241.3 mg magnesium) tablet 400 mg PO DAILY Qty: 90 0RF Discharge Orders: Discharge ED (Routine); Ordered 11/13/23 Ordered By: Fauzia Fuentes Referrals: Giovany Willingham, UNDERGROUND SUPERVISOR [Primary Care Provider] - Coding Level of Care Code ED Inspector Publications for Srinivas Velasquez
[2023-11-13] MEDS: insulin glargine 100 units/1 mL 15 UNIT SUBCUT (22:48)
[2023-11-13 22:54] VITALS: BP 105/55; PULSE 73; RESP 18; TEMP 37.4; O2SAT 96
== END 2023-11-13 22:55 | disposition home or self-care (01) ==
PROVIDERS: Emergency Provider Physician Assistant; PCP Registered Nurse
DX: E11.65 Type 2 diabetes mellitus with hyperglycemia (principal); Z79.85 Long-term (current) use of injectable non-insulin antidiabetic drugs; Z79.4 Long term (current) use of insulin; Z72.0 Tobacco use
CPT/HCPCS: 36416; 82962; 96372; 99284; J1815

== ENCOUNTER → 2023-12-09 14:54 | Outpatient (BNVA) | payer MEDICAID, SELFPAY | PROVIDERS: PCP Registered Nurse; Visit Provider Registered Nurse | DX: E11.65 Type 2 diabetes mellitus with hyperglycemia (principal) | CPT/HCPCS: 83036 ==

== ENCOUNTER → 2024-03-06 10:46 | Outpatient (BNVA) | payer MEDICAID, SELFPAY | PROVIDERS: PCP Registered Nurse; Visit Provider Registered Nurse | DX: E11.9 Type 2 diabetes mellitus without complications (principal) | CPT/HCPCS: 80053; 83036 ==

== ENCOUNTER → 2024-03-17 10:12 | Outpatient (BNVA) | payer MEDICAID, SELFPAY | PROVIDERS: PCP Registered Nurse; Visit Provider Podiatrist Foot & Ankle Surgery | DX: L60.3 Nail dystrophy (principal); E11.65 Type 2 diabetes mellitus with hyperglycemia; G62.9 Polyneuropathy, unspecified; I73.9 Peripheral vascular disease, unspecified; E11.42 Type 2 diabetes mellitus with diabetic polyneuropathy; Z79.4 Long term (current) use of insulin | CPT/HCPCS: 99203 ==

== ENCOUNTER → 2024-05-25 10:19 | Outpatient (BNVA) | payer MEDICAID, SELFPAY | PROVIDERS: PCP Registered Nurse; Visit Provider Registered Nurse | DX: E11.9 Type 2 diabetes mellitus without complications (principal) | CPT/HCPCS: 80048; 83036 ==

== ENCOUNTER → 2024-07-20 10:21 | Outpatient (BNVA) | payer MEDICAID, SELFPAY | PROVIDERS: PCP Registered Nurse; Visit Provider Registered Nurse | DX: E11.9 Type 2 diabetes mellitus without complications (principal) | CPT/HCPCS: 80053; 83036; 85025 ==

== ENCOUNTER → 2024-07-27 10:37 | Outpatient (BNVA) | payer MEDICAID, SELFPAY | PROVIDERS: PCP Registered Nurse; Referring Provider Registered Nurse; Visit Provider Surgery | DX: K21.00 Gastro-esophageal reflux disease with esophagitis, without bleeding (principal); K21.9 Gastro-esophageal reflux disease without esophagitis; R11.2 Nausea with vomiting, unspecified; R10.9 Unspecified abdominal pain; K52.9 Noninfective gastroenteritis and colitis, unspecified | CPT/HCPCS: 99214 ==

== ENCOUNTER 2024-07-31 10:48 | Outpatient (CLI) | payer MEDICAID, SELFPAY ==
--- NOTE | 2024-07-31 11:00 | CT_ITS ---
WS: [id number] CT ABDOMEN WITH CONTRAST HISTORY: K21.00 - Gastro-esophageal reflux disease with esophagitis... Contiguous single phase 5 mm axial imaging performed to the abdomen. Oral contrast has been provided. Coronal and sagittal reformats are submitted. All CT scans at [facility] use at least one of these dose optimization techniques: automated exposure control; mA and/or kV adjustment per patient size (includes targeted exams where dose is matched to clinical indication); or iterative reconstruct ion. IV CONTRAST: Omnipaque 350; 100 mL IV. Oral contrast: Yes. DLP: 197.42 mGy.cm COMPARISON: 06/15/2021 Lower thorax: Lung bases are hyperexpanded. Heart is normal size. Small hiatal hernia. Liver/biliary system: Normal size with no intrahepatic dilatation. Gallbladder: Normal. No gallstones or wall thickening. No pericholecystic fluid. Pancreas: Normal size pancreas and pancreatic duct. No adjacent inflammation. Spleen: Normal size spleen. No mass or infarct. Adrenal glands: Stable RIGHT adrenal adenoma measuring 1.5 x 1.1 cm. Previously imaged by MRI on 11/17. Normal LEFT adrenal gland. Right kidney: Simple cyst inferior RIGHT kidney measures 1.1 cm. LEFT kidney: Multiple cortical cysts associated with the LEFT kidney. The largest in the mid cortex m easures 1.5 cm. Cysts have slightly increased in size since 2020. Simple cysts were described on the prior MRI from 2021 also. Aorta: Mild atherosclerosis with no aneurysm. Lymphadenopathy: None. Free fluid: None. GI tract: Stomach is moderately well distended with food products. No obstruction. Normal proximal sm all bowel. Abdominal wall: Unremarkable abdominal wall. No hernia. Visualized osseous structures: Unremarkable. CT/CT abdomen w con* [id number] IMPRESSION: 1. Small hiatal hernia. 2. Bilateral renal cysts, no solid mass. 3. Long-term stability RIGHT adrenal adenoma, 1.5 x 1.1 cm. 4. No ascites or adenopathy.
[2024-07-31] MEDS: iohexol 350 mg/mL 500 mL Btl (per mL) IV (11:13)
[2024-07-31] MEDS: iohexol 350 mg/mL 500 mL Btl (per mL) PO (11:14)
== END 2024-07-31 10:49 | disposition home or self-care (01) ==
LOC: RAD 10:48
PROVIDERS: PCP Registered Nurse; Visit Provider Registered Nurse
DX: K21.00 Gastro-esophageal reflux disease with esophagitis, without bleeding (principal); K31.89 Other diseases of stomach and duodenum; R10.32 Left lower quadrant pain; K44.9 Diaphragmatic hernia without obstruction or gangrene; N28.1 Cyst of kidney, acquired; D35.01 Benign neoplasm of right adrenal gland; R91.8 Other nonspecific abnormal finding of lung field; I70.0 Atherosclerosis of aorta
CPT/HCPCS: 74160

== ENCOUNTER 2024-08-12 10:37 | Day surgery (SDC) | payer MEDICAID, SELFPAY ==
[2024-08-12 10:58] VITALS: BP 140/87; PULSE 78; RESP 17; TEMP 36.2; O2SAT 98
[2024-08-12] MEDS: sodium chloride 0.9% 500 ML 15 ML IV (11:18)
[2024-08-12 11:23] LABS: Glucose Point of Care 154 mg/dL (70-110)
--- NOTE | 2024-08-12 12:22 | ANES.PREANE2 ---
Pre-Anesthetic Assessment Height/Weight: Height 1.73 m Temp Pulse Resp BP Pulse Ox O2 Del Method 97.2 F L 78 17 140/87 98 Room Air 08/12/24 10:58 08/12/24 10:58 08/12/24 10:58 08/12/24 10:58 08/12/24 10:58 08/12/24 10:58 Preop Diagnosis: GERD, N/V, Operation Date: 08/12/24 12:00 Proposed Procedures p EGD 31541, 66729, G0105, KI21.00 , K21.9, R11.2, R10.9, K52.9(Not Applicable) - DO josiah Damian Colonoscopy(Not Applicable) - Tra Frankel DO Familial anesthetic complications: none Was Beta Perry taken within 24 hours: N/A Last intake: Intake Last Liquid Date 08/11/24 Last Liquid Time 20:00 Last Solid Date 08/10/24 Last Solid Time 18:00 Social No alcohol and No tobacco Exam alert, oriented x 3, clear to auscultation bilaterally and regular rate & rhythm Airway Submandibular: within normal limits Cervical ROM: within normal limits Mallampati: Class II Dentition: false Pulmonary None reported CV/HEM Hypertension None reported Hepatic None reported GI Gastroesophageal Reflux Disease N/V Abdominal Pain. Metabolic Diabetes Mellitus and Hyperlipidemia [facility] None reported Neuropsych Neuropathy (BLE) Anesthetic Plan ASA status: 3 Anesthesia: MAC Medications/Allergies Home Medications ?Medication ?Instructions ?Recorded ?Confirmed ?Last Taken ?Type blood-glucose meter #1 ea 10/04/22 08/03/24 Unknown Rx lancets #100 ea 11/20/22 08/03/24 Unknown Rx ONETOUCH VERIO JOSE #1 ea 11/22/23 08/03/24 Unknown Rx blood-glucose meter,continuous #1 ea 11/22/23 08/03/24 Unknown Rx (Dexcom G7 [employer]roll [employer]) blood-glucose sensor (Dexcom G7 #1 ea 11/22/23 08/03/24 Unknown Rx Sensor device) diabetic shoes with 3 inserts #1 ea 03/17/24 08/03/24 Unknown Rx insulin syringe-needle U-100 1/2 #100 ea 06/30/24 08/03/24 Unknown Rx mL 31 gauge x 15/64 (BD Veo Insulin Syringe Ultra-Fine) blood-glucose sensor (Dexcom G7 #1 ea 08/10/24 Unknown Rx Sensor device) empagliflozin 25 mg tablet 25 mg PO DAILY 08/10/24 08/12/24 08/11/24 History (Jardiance) gabapentin 100 mg capsule 200 mg PO TID 08/10/24 08/12/24 08/11/24 History insulin glargine 100 unit/mL See Rx Instructions .Route 08/10/24 08/12/24 08/11/24 Rx subcutaneous solution (Lantus .COMPLEX #10 mL U-100 Insulin) magnesium oxide 400 mg (241.3 mg 400 mg PO DAILY 08/10/24 08/12/24 08/11/24 History magnesium) tablet pantoprazole 40 mg tablet,delayed 40 mg PO BID 08/10/24 08/12/24 08/11/24 History release (Protonix) rosuvastatin 10 mg tablet 10 mg PO DAILY 08/10/24 08/12/24 08/11/24 History trazodone 50 mg tablet 50 mg PO DAILY 08/11/24 08/12/24 08/10/24 History Allergies Allergy/AdvReac Type Severity Reaction Status Date / Time No Known Allergies Allergy Verified 08/10/24 08:55 Current Medications Generic Name Dose Route Start Last Admin Trade Name Freq PRN Reason Stop Dose Admin Sodium Chloride 500 mls @ 15 mls/hr 08/12/24 10:46 08/12/24 11:18 Sodium Chloride 0.9% IV 08/13/24 10:45 15 mls/hr .Q24H PRN Administration COLONOSCOPY FLUIDS PFSH Anesthesia Medical History Gastritis Hiatal hernia Diabetes mellitus Family History Other Cancer Diabetes Heart disease Social History Smoking and tobacco/nicotine status: former use of tobacco/nicotine Quit status (tobacco/nicotine): has quit using Year quit tobacco: 2023 Former quit date comment: 08/08/2023 Alcohol intake: current Alcohol intake frequency: 0-2 Drinks per Day Alcohol type: beer Substance/Drug Use: never Adopted: No Caregiver/support person: No Lives independently: Yes service: No Current occupational status: unemployed Sexually active: Yes Do you think of yourself as: Straight/Heterosexual Current gender identity: Male Data Anesthesia Cardiac Studies: No Data to Display
--- NOTE | 2024-08-12 12:56 | W.PM.OPSUD ---
Surgery/Procedure H&P Update DATE OF PROCEDURE: August 12, 2024 DATE H&P PERFORMED: 07/27/24 H&P UPDATE INFORMATION: I have reviewed H&P completed within last 30 days, I have examined patient prior to procedure and No changes to prior documentation PREOP DIAGNOSIS: GERD, N/V, PLANNED PROCEDURE: Operation Date: 08/12/24 12:00 Proposed Procedures p EGD 84999, 38574, G0105, KI21.00 , K21.9, R11.2, R10.9, K52.9(Not Applicable) - DO josiah Damian Colonoscopy(Not Applicable) - Tra Frankel DO
[2024-08-12 13:27] VITALS: BP 128/70; PULSE 82; RESP 12; TEMP 36.2; O2SAT 99
[2024-08-12 13:41] VITALS: BP 120/74; PULSE 78; RESP 18; O2SAT 97
[2024-08-12 13:45] VITALS: BMI 22.6
--- NOTE | 2024-08-12 13:45 | ANE.PACU2 ---
Inpatient post-anesthesia follow up: Airway intact: Yes Vital signs: Temperature 97.2 F Pulse Rate 78 Respiratory Rate 18 Blood Pressure 120/74 Pulse Oximetry 97 Oxygen Delivery Me thod Room Air Oxygen Flow Rate Fraction of Inspir ed Oxygen Hydration adequate: Yes Nausea and vomiting: No Pain level: 1 Mental status: Baseline
[2024-08-12 14:09] LABS: C.Diff PCR (Lab) NEGATIVE (Negative)
== END 2024-08-12 13:49 | disposition home or self-care (01) ==
PROVIDERS: PCP Registered Nurse; Visit Provider Surgery
PROC: 0DJ08ZZ Inspection of Upper Intestinal Tract, Via Natural or Artificial Opening Endoscopic (ICD-10-PCS; principal; 2024-08-12 12:00)
PROC: 0DJD8ZZ Inspection of Lower Intestinal Tract, Via Natural or Artificial Opening Endoscopic (ICD-10-PCS; CPT 45378; 2024-08-12 12:00)
DX: K52.9 Noninfective gastroenteritis and colitis, unspecified (principal); K21.9 Gastro-esophageal reflux disease without esophagitis; I10 Essential (primary) hypertension; E78.5 Hyperlipidemia, unspecified; E11.40 Type 2 diabetes mellitus with diabetic neuropathy, unspecified; Z87.891 Personal history of nicotine dependence; Z79.899 Other long term (current) drug therapy; Z79.4 Long term (current) use of insulin
CPT/HCPCS: 36416; 43239; 45380; 82274; 82962; 83630; 87045; 87177; 87209; 87427; 87449; 87493; 88305; J2704; J7040

== ENCOUNTER → 2024-08-31 10:56 | Outpatient (BNVA) | payer MEDICAID, SELFPAY | PROVIDERS: PCP Registered Nurse; Visit Provider Surgery | DX: K21.9 Gastro-esophageal reflux disease without esophagitis (principal); R11.2 Nausea with vomiting, unspecified; R10.9 Unspecified abdominal pain; K52.9 Noninfective gastroenteritis and colitis, unspecified | CPT/HCPCS: 99214 ==

== ENCOUNTER 2024-09-04 09:23 | Outpatient (CLI) | payer MEDICAID, SELFPAY ==
--- NOTE | 2024-09-04 09:45 | US_ITS ---
WS: [id number] RIGHT UPPER QUADRANT ULTRASOUND HISTORY: abdominal pain COMPARISON: CT 07/31/2024 Liver: 15.1 cm in length. Normal size liver and echogenicity. No bile duct dilatation or mass. Portal Vein: Normal hepatopetal flow with monophasic waveform. Gallbladder: Normally distended gallbladder with small amount of layering sludge. No stones are identified. No pericholecystic fluid. CBD: 0.2 cm Pancreas: Normal size and echogenicity. Right kidney: 10.2 cm in length. Normal size kidney. Cortical cyst lower pole measures 1.5 x 1.6 x 1.3 cm. No solid mass or obstruction. Aorta and IVC: Unremarkable abdominal aorta and IVC. No ascites. US/US gall bladder [id number] IMPRESSION: 1. Small amount of sludge in the gallbladder. No cholelithiasis. 2. Normal common bile duct. 3. Simple cyst lower pole RIGHT kidney.
== END 2024-09-04 09:24 | disposition home or self-care (01) ==
PROVIDERS: PCP Registered Nurse; Visit Provider Surgery
DX: R10.9 Unspecified abdominal pain (principal); R93.5 Abnormal findings on diagnostic imaging of other abdominal regions, including retroperitoneum; N28.1 Cyst of kidney, acquired
CPT/HCPCS: 76705

== ENCOUNTER 2024-09-08 08:52 | Outpatient (CLI) | payer MEDICAID, SELFPAY ==
--- NOTE | 2024-09-08 10:00 | NM_ITS ---
WS: [id number] NUCLEAR MEDICINE HIDA SCAN CLINICAL INFORMATION: R10.9 - Unspecified abdominal pain TECHNIQUE: Following intravenous administration of 8.5 mCi of technetium 99m mebrofenin, images of the abdomen were obtained over the course of 60 minutes. Next, gallbladder ejection fraction was determined by obtaining preprandial and one-hour postprandial images of the gallbladder following oral ingestion of Ensure. FINDINGS: Normal hepatic uptake at 5 minutes. Normal hepatic excretion. Normal common bile duct and small bowel activity. Gallbladder is visualized by 30 minutes. No evidence of acute cholecystitis. Gallbladder ejection fraction 73% within normal limits. No evidence of chronic cholecystitis. NM/NM hepatobiliary w phar* [id number] IMPRESSION: 1. No evidence of acute or chronic cholecystitis. 2. Gallbladder ejection fraction 73% within normal limit
== END 2024-09-08 08:53 | disposition home or self-care (01) ==
PROVIDERS: PCP Registered Nurse; Visit Provider Surgery
DX: R10.9 Unspecified abdominal pain (principal)
CPT/HCPCS: 78227; A9537

== ENCOUNTER → 2024-09-23 10:44 | Outpatient (BNVA) | payer MEDICAID, SELFPAY | PROVIDERS: PCP Registered Nurse; Visit Provider Surgery | DX: K52.9 Noninfective gastroenteritis and colitis, unspecified (principal); R10.9 Unspecified abdominal pain; K31.84 Gastroparesis; K31.89 Other diseases of stomach and duodenum | CPT/HCPCS: 99213 ==

== ENCOUNTER → 2024-10-21 07:30 | Outpatient (BNVA) | payer MEDICAID, SELFPAY | PROVIDERS: PCP Registered Nurse; Visit Provider Registered Nurse | DX: E11.65 Type 2 diabetes mellitus with hyperglycemia (principal) | CPT/HCPCS: 83036 ==

== ENCOUNTER → 2024-12-09 10:37 | Outpatient (BNVA) | payer MEDICAID, SELFPAY | PROVIDERS: PCP Registered Nurse; Visit Provider Internal Medicine | DX: E11.65 Type 2 diabetes mellitus with hyperglycemia (principal); E78.2 Mixed hyperlipidemia; G62.9 Polyneuropathy, unspecified; I73.9 Peripheral vascular disease, unspecified | CPT/HCPCS: 99204 ==

== ENCOUNTER → 2025-01-06 14:35 | Outpatient (BNVA) | payer MEDICAID, SELFPAY | PROVIDERS: PCP Registered Nurse; Visit Provider Podiatrist Foot & Ankle Surgery | DX: E11.65 Type 2 diabetes mellitus with hyperglycemia (principal); L60.3 Nail dystrophy; G62.9 Polyneuropathy, unspecified; I73.9 Peripheral vascular disease, unspecified; Z79.4 Long term (current) use of insulin | CPT/HCPCS: 11721; 99213 ==

== ENCOUNTER 2025-03-10 09:59 | Outpatient (CLI) | payer MEDICAID, SELFPAY ==
--- NOTE | 2025-03-10 10:30 | CT_ITS ---
WS: [id number] LDCT LUNG CANCER SCREENING HISTORY: Z87.891 - Personal history of nicotine dependence TECHNIQUE: Axial imaging performed from the apices to 1 cm below the costophrenic angles. Coronal and sagittal reformats are submitted with axial MIP series. All CT scans at [facility] use at least one of these dose optimization techniques: automated exposure control; mA and/or kV adjustment per patient size (includes targeted exams where dose is matched to clinical indication); or iterative reconstruction. DLP: 51.59 mGy.cm DIvol: Mean CTDIvol: 0.90 (mGy) COMPARISON: 09/26/2023 Diagnostic quality: Satisfactory Lungs: Pulmonary hyperinflation from centrilobular emphysema. No pulmonary mass, nodule or pneumonia. Benign granuloma in the anterior medial LEFT upper lobe. No endobronchial lesions. Benign granuloma periphery RIGHT lower lobe. Heart: Normal size heart with no pericardial effusion.. Other findings: Mild atherosclerosis aorta. No mediastinal or hilar adenopathy. There are few scattered coronary artery calcifications. Small hiatal hernia. Stable 1.6 cm RIGHT adrenal adenoma. Normal LEFT adrenal gland. CT/CT lung screening [id number] IMPRESSION: LUNG-RADS: 2-Benign Appearance or Behavior FOLLOW UP: 12 Month: Continue annual screening with LDCT OTHER FINDINGS (S MODIFIER): None.
[2025-03-10 12:56] LABS: Estmated Average Glucose 186; Hemoglobin A1C 8.1 % (4.0-6.0)
[2025-03-10 13:02] LABS: Alanine Aminotransferase 16 U/L (0-41); Albumin Level 4.4 g/dL (3.5-5.2); Alkaline Phosphatase 96 U/L (40-130); Anion Gap 16.3 (5-19); Aspartate Amino Transferase 14 U/L (0-40); Blood Urea Nitrogen 11 mg/dL (8-23); Calcium 9.3 mg/dL (8.5-10.5); Carbon Dioxide 26 mmol/L (22-29); Chloride 101 mmol/L (98-107); Cholesterol 146 mg/dL (0-200); Creatinine Clr Calc Pharmacy 66.9954; Globulin 2.9 g/dL (1.3-4.6); Glucose 210 mg/dL (65-115); HDL Cholesterol 52 mg/dL (60-100); Osmolality Calculated 294 mOsm/kg (285-295); Potassium 4.3 mmol/L (3.5-5.1); Sodium 139 mmol/L (136-145); Total Protein 7.3 g/dL (6.6-8.7); Triglycerides 148 mg/dL (0-150)
[2025-03-20 04:20] LABS: GAD 65 IA-2 Antibody <5.4 U/mL (<5.4); GAD Insulin Autoantibody <0.4 U/mL (<0.4); Glutamic Acid Decarboxylase 65 51 IU/mL (<5); Zinc Transporter 8 AB 18 U/mL (<15)
== END 2025-03-10 10:00 | disposition home or self-care (01) ==
LOC: RAD 10:00
PROVIDERS: Internal Medicine; PCP Registered Nurse; Visit Provider Registered Nurse
DX: E11.65 Type 2 diabetes mellitus with hyperglycemia (principal); E78.2 Mixed hyperlipidemia; E11.42 Type 2 diabetes mellitus with diabetic polyneuropathy; G62.9 Polyneuropathy, unspecified; I73.9 Peripheral vascular disease, unspecified; R11.2 Nausea with vomiting, unspecified; E11.51 Type 2 diabetes mellitus with diabetic peripheral angiopathy without gangrene; Z79.84 Long term (current) use of oral hypoglycemic drugs; Z87.891 Personal history of nicotine dependence; J43.2 Centrilobular emphysema; J84.10 Pulmonary fibrosis, unspecified; K44.9 Diaphragmatic hernia without obstruction or gangrene; I70.0 Atherosclerosis of aorta; I25.84 Coronary atherosclerosis due to calcified coronary lesion
CPT/HCPCS: 36415; 71271; 80053; 80061; 83036; 84681; 86337; 86341; 99214

== ENCOUNTER → 2025-04-28 15:12 | Outpatient (BNVA) | payer MEDICAID, SELFPAY | PROVIDERS: PCP Registered Nurse; Visit Provider Internal Medicine Endocrinology, Diabetes & Metabolism | DX: E10.9 Type 1 diabetes mellitus without complications (principal); E78.2 Mixed hyperlipidemia; E10.42 Type 1 diabetes mellitus with diabetic polyneuropathy; I73.9 Peripheral vascular disease, unspecified; R11.2 Nausea with vomiting, unspecified; Z79.4 Long term (current) use of insulin | CPT/HCPCS: 99204 ==